=== PATIENT | female | born 1955 | race Caucasian/White ===

== ENCOUNTER → 2019-12-15 10:03 | Outpatient (BNVA) | payer BC, SELFPAY | PROVIDERS: Family Provider Nurse Practitioner; PCP Nurse Practitioner; Visit Provider Nurse Practitioner | DX: I10 Essential (primary) hypertension (principal); R73.9 Hyperglycemia, unspecified | CPT/HCPCS: 80053; 80061; 81000; 84443 ==

== ENCOUNTER → 2020-06-25 16:19 | Outpatient (BNVA) | payer BC, SELFPAY | PROVIDERS: Family Provider Nurse Practitioner; PCP Nurse Practitioner; Visit Provider Nurse Practitioner Family | DX: I10 Essential (primary) hypertension (principal); R07.9 Chest pain, unspecified; M79.10 Myalgia, unspecified site; J30.89 Other allergic rhinitis; E78.2 Mixed hyperlipidemia; J45.990 Exercise induced bronchospasm; M17.10 Unilateral primary osteoarthritis, unspecified knee; K21.00 Gastro-esophageal reflux disease with esophagitis, without bleeding; E66.9 Obesity, unspecified | CPT/HCPCS: 80053; 80061; 84443; 84484; 85025 ==

== ENCOUNTER 2020-10-25 20:56 | Emergency (ER) | payer BC, SELFPAY ==
[2020-10-25 21:10] VITALS: BP 152/89; PULSE 78; RESP 16; TEMP 36.2; O2SAT 100; BMI 34.7
--- NOTE | 2020-10-25 21:12 | XRR_ITS ---
PROCEDURE INFORMATION: Exam: XR Right Wrist Exam date and time: 10/25/2020 9:12 PM Age: 65 years old Clinical indication: Right; Patient HX: PT. Fell RT. Wrist pain; Additional info: Pain/injury TECHNIQUE: Imaging protocol: XR Right wrist. Views: 1 or 2 views. COMPARISON: No relevant prior studies available. FINDINGS: Bones/joints: No acute fracture or dislocation. Soft tissues: Normal. XR/XR wrist RT 2V [id number] IMPRESSION: No acute fracture or dislocation.
--- NOTE | 2020-10-25 21:21 | XRR_ITS ---
PROCEDURE INFORMATION: Exam: XR Right Knee Exam date and time: 10/25/2020 9:21 PM Age: 65 years old Clinical indication: Right; Patient HX: PT. Fell RT. Knee pain TECHNIQUE: Imaging protocol: XR Right knee. Views: 3 views. COMPARISON: No relevant prior studies available. FINDINGS: Bones/joints: No acute fracture or dislocation. Soft tissues: Normal. XR/XR knee RT 3V* [id number] IMPRESSION: No acute fracture or dislocation.
[2020-10-25 21:54] VITALS: BP 124/71; PULSE 79; RESP 17; O2SAT 99
[2020-10-25] MEDS: tetanus-dipt-pertussis 0.5 mL SDV IM (21:59)
--- NOTE | 2020-10-25 22:53 | ED_ITS ---
HPI - Extremity Problem General: Chief complaint: Extremity Injury, Upper Stated complaint: fall/r wrist injury Time Seen by Provider: 10/25/20 21:12 History of Present Illness: HPI Narrative: The patient is a 65-year-old female who comes to the ER after a trip and fall. She complains of right wrist and right knee pain. She also has a small scrape to her left great toe. Tetanus greater than 5 years old. Neurovascularly intact distal to all injuries. Major ligaments also intact. MD Complaint: extremity pain and joint pain Pain Consistency: constant Location: left and right Associated symptoms: Deny chest pain or rash Review of Systems General: Reports: 10 or more systems reviewed and unremarkable except in HPI and below Const: Denies: fatigue Eyes: Denies: change in vision, blurry vision or eye redness ENMT: Denies: throat pain, swelling of lips/tongue, ear or mastoid pain or nasal congestion Card: Denies: chest pain, palpitations, irregular heart rhythm, edema, dyspnea on exertion or orthopnea Resp: Denies: dyspnea, productive cough or non-productive cough GI: Denies: abdominal pain, diarrhea or GI cramping : Denies: flank pain, difficulty voiding, urinary frequency or urinary urgency Musc: Reports: joint pain; Denies: neck pain, back pain, extremity pain, joint redness, limited range of motion or muscle weakness Skin/Breast: Denies: rash, pruritus, erythema, skin pain or skin tenderness Neuro: Denies: headache(s), numbness in extremities, weakness in extremities, sensory changes, difficulty walking, dizziness, confusion or Slurred speech present Psych: Denies: anxiety or depression Endo: Denies: polyuria All/Imm: Denies: urticaria, throat swelling or tongue swelling PFSH ED PFSH: Medical History Anxiety and depression Environmental and seasonal allergies GERD (gastroesophageal reflux disease) HTN, goal below 130/80 Hyperlipidemia, unspecified Knee arthropathy Migraine Myalgia Surgical History H/O reduction mammoplasty History of appendectomy History of hysterectomy Family History Other Asthma Diabetes Heart disease Denies family history of Bleeding disorder Social History Smoking and tobacco status: never smoked Second hand smoke exposure: No Smoking risk assessment/counseling performed?: No Alcohol intake: never Desire information about alcohol rehabilitation?: No Counseling given: No Desire information about substance/drug rehabilitation?: No Counseling given: No Household members: spouse History of recent travel: No Current gender identity: Female Physical Exam Const: COMMON NORMALS: no acute distress, average body habitus, patient oriented x3, no limitations, healthy appearing, alert and well nourished GENERAL APPEARANCE: cooperative, comfortable, well kempt and well developed ORIENTATION/CONSCIOUSNESS: Yes awake, Yes oriented to person, Yes oriented to place and Yes oriented to time HENMT: COMMON NORMALS: normocephalic, external ears normal and Normal external nose present HEAD & SCALP: normal to inspection and normocephalic NOSE: Normal external nose present EXTERNAL EAR: Yes external ears normal MOUTH: Normal oral and palatal mucosa present THROAT: posterior oropharynx normal Eye: COMMON NORMALS: Equal, round and reactive pupils present and EOMs intact bilaterally GENERAL EYE: appearance normal, both eyes and all related structures PUPIL: Yes Equal, round and reactive pupils present Neck/C-Spine: COMMON NORMALS: full ROM, no lymphadenopathy, no meningeal signs and no JVD GENERAL: Yes normal visual inspection Lymph: LYMPHATIC: no lymphadenopathy noted Chest: COMMONS NORMALS: normal inspection of the chest and normal palpation of entire chest wall Resp: COMMON NORMALS: normal respiratory effort, No retractions, No use of accessory muscles, clear to auscultation bilaterally and percussion normal EFFORT & INSPECTION: Yes able to speak in complete sentences AUSCULTATION: clear to auscultation bilaterally PERCUSSION: percussion normal Cardio: COMMON NORMALS: no JVD, regular rate, regular rhythm, S1 normal heart sound present, S2 normal heart sound present and Peripheral pulses 2+ throughout RATE: regular rate RHYTHM: regular rhythm HEART SOUNDS: S1 normal heart sound present and S2 normal heart sound present PERIPHERAL PULSES: Peripheral pulses 2+ throughout GI: COMMON NORMALS: Normal to inspection, nondistended, normoactive bowel sounds present, Soft to palpation, non-tender and no masses INSPECTION: Yes normal to inspection PALPATION: Yes Soft to palpation : COMMON NORMALS: Yes no CVA tenderness BLADDER/KIDNEY EXAM: Yes no CVA tenderness Back/Pelvis: COMMON NORMALS: no CVA tenderness, thoracic and lumbar spine normal to inspection, no thoracic nor lumbar tenderness and thoraco-lumbar ROM normal Extremity: COMMON NORMALS: normal to inspection, full ROM, capillary refill normal, no joint enlargement and no pedal edema NARRATIVE EXTREMITY EXAM: Right wrist with some pain and tenderness to the bony areas. Will get x-ray. Likely sprain but will get x-ray. Neurovascularly intact distal to injury. Right knee major ligaments intact. Appears mildly swollen compared to the left knee. No bruising. Neurovascularly intact distal to injury. Left great toe has a abrasion to it with a small amount of crusted blood. GENE RAL: Yes normal exam except as noted Neuro: COMMON NORMALS: patient oriented x3, CN's II-XII intact bilaterally, moves all extremities, no focal motor deficits, no sensory deficits noted and gait normal SENSORIUM/ORIENTATION: Yes alert, Yes oriented to person, Yes oriented to place and Yes oriented to time MENINGEAL SIGNS: Yes no meningeal signs Psych: COMMON NORMALS: mental status grossly normal, Normal thought process present, cooperative, normal affect and speech normal APPEARANCE: Yes well kempt ATTITUDE: Yes calm SPEECH: Yes normal speech THOUGHT PROCESS: Normal thought process present Skin: COMMON NORMALS: no rashes or lesions noted GENERAL SKIN EXAM: no rashes or lesions noted Course Vital Signs: Vital signs: Vital Signs Temperature 97.2 F L 10/25/20 21:10 Pulse Rate 79 10/25/20 21:54 Respiratory Rate 17 10/25/20 21:54 Blood Pressure 124/71 10/25/20 21:54 Pulse Oximetry 99 10/25/20 21:54 MDM - Extremity (Nontraumatic) MDM Narrative: Medical decision making narrative: X-rays of right wrist and knee negative. Left toe scrape was cleaned with peroxide and given tetanus update. Tylenol for pain and primary doctor in a few days. MRI if still in pain. ER with worsening symptoms at any time Discharge Plan Discharge Patient Disposition: Home Clinical Impression: Sprain and strain of wrist, Contusion of knee Condition: Stable Prescriptions: No Action albuterol sulfate [ProAir HFA] 90 mcg/actuation HFA aerosol inhaler 2 puff INHALATION Q6H PRN (Reason: shortness of breath or wheezing) Qty: 8.5 RF: 5 cyclobenzaprine 10 mg tablet 10 mg PO TID PRN (Reason: muscle spasm) Qty: 90 RF: 5 diclofenac sodium [Voltaren] 1 % gel 2 g TOPICAL .at bedtime 30 Days Qty: 100 RF: 5 fenofibrate nanocrystallized [Tricor] 145 mg tablet 145 mg PO DAILY Qty: 30 RF: 5 furosemide [Lasix] 20 mg tablet 20 mg PO DAILY Qty: 30 RF: 5 loratadine 10 mg tablet 10 mg PO DAILY Qty: 30 RF: 5 meloxicam 15 mg tablet 15 mg PO DAILY Qty: 30 RF: 5 metoprolol tartrate 25 mg tablet 25 mg PO BID Qty: 60 RF: 5 montelukast 10 mg tablet 10 mg PO DAILY Qty: 30 RF: 5 lisinopril 20 mg tablet 20 mg PO DAILY 30 Days Qty: 30 RF: 5 nitroglycerin 0.4 mg tablet, sublingual 0.4 mg sublingual Q5M PRN (Reason: chest pain) 30 Days Qty: 30 RF: 2 omeprazole 40 mg capsule,delayed release(DR/EC) 40 mg PO DAILY 30 Days Qty: 30 RF: 2 fluticasone propionate 50 mcg/actuation spray,suspension 2 spray INTRANASAL DAILY RF: 0 meclizine 12.5 mg tablet 12.5 mg PO DAILY RF: 0 Contrave 8-90 mg tablet extended release 2 tab PO Q12H Qty: 120 RF: 0 aspirin [Adult Aspirin Regimen] 81 mg tablet,delayed release (DR/EC) 81 mg PO DAILY Qty: 30 RF: 6 Discharge Orders: Discharge ED (Routine); Ordered 10/25/20 Ordered By: Brandon Ibrahim Referrals: Cinda Gonzalez, BAUTISTAC [Primary Care Provider] - Discharge Diet: Advance as tolerated Discharge Activity: Resume usual activity Patient Instructions: Opioid Safety Activity Restrictions/Additional Instructions: We have taken x-rays of your knee and wrist and there are no fractures. You have likely sprained and bruised your wrist and knee. Please take Tylenol for your pain and give it a few days. Follow-up with your primary care physician around that and get an MRI if you are still having significant pain. Return to the ER at anytime with worsening symptoms Coding Level of Care Code ED Hand Pattern Marker for Lindsay Carroll
[2020-10-25 23:27] VITALS: BP 109/71; PULSE 83; RESP 16; TEMP 36.4; O2SAT 99
== END 2020-10-25 23:28 | disposition home or self-care (01) ==
PROVIDERS: Emergency Provider Family Medicine; PCP Nurse Practitioner
DX: S63.501A Unspecified sprain of right wrist, initial encounter (principal); S66.911A Strain of unspecified muscle, fascia and tendon at wrist and hand level, right hand, initial encounter; S80.01XA Contusion of right knee, initial encounter; Z79.82 Long term (current) use of aspirin; I10 Essential (primary) hypertension; E78.5 Hyperlipidemia, unspecified; W01.0XXA Fall on same level from slipping, tripping and stumbling without subsequent striking against object, initial encounter; Z23 Encounter for immunization
CPT/HCPCS: 73100; 73562; 90471; 90715; 99283

== ENCOUNTER 2020-12-05 09:15 | Outpatient (CLI) | payer BC, SELFPAY ==
[2020-12-05 09:30] VITALS: BP 132/80; PULSE 80; RESP 17; TEMP 36.7; O2SAT 98; BMI 33.8
[2020-12-05 09:36] VITALS: BP 115/25; PULSE 75; RESP 19; TEMP 35.5; O2SAT 96
[2020-12-05 10:01] VITALS: BP 130/78; PULSE 75; RESP 17; TEMP 36.9; O2SAT 96
== END 2020-12-05 09:16 | disposition home or self-care (01) ==
PROVIDERS: PCP Nurse Practitioner; Visit Provider Nurse Practitioner
DX: U07.1 COVID-19 (principal)
CPT/HCPCS: 96365

== ENCOUNTER → 2021-01-06 09:44 | Outpatient (BNVA) | payer BC, SELFPAY | PROVIDERS: PCP Nurse Practitioner; Visit Provider Nurse Practitioner | DX: I10 Essential (primary) hypertension (principal); E78.2 Mixed hyperlipidemia; J30.89 Other allergic rhinitis; M17.10 Unilateral primary osteoarthritis, unspecified knee; E66.9 Obesity, unspecified; J45.990 Exercise induced bronchospasm; M79.10 Myalgia, unspecified site | CPT/HCPCS: 71046; 80053; 80061 ==

== ENCOUNTER 2021-01-24 13:51 | Outpatient (CLI) | payer BC, SELFPAY ==
--- NOTE | 2021-01-24 15:00 | MM_ITS ---
WS: [id number] BILATERAL SCREENING DIGITAL MAMMOGRAM WITH CAD HISTORY: Z12.39 - Encounter for other screening for malignant neoplasm. COMPARISON: 01/21/2018 Bilateral CC and MLO views submitted. Computer aided detection analyzed. Breast composition: The breasts are almost entirely fatty. No suspicious masses, microcalcifications or architectural distortion. MM/[place] [id number] IMPRESSION: BI-RADS: 1-Negative FOLLOW UP: 1 Year Follow-up
== END 2021-01-24 13:52 | disposition home or self-care (01) ==
LOC: RADSHAW 13:53
PROVIDERS: PCP Nurse Practitioner; Visit Provider Nurse Practitioner
DX: Z12.31 Encounter for screening mammogram for malignant neoplasm of breast (principal)
CPT/HCPCS: 77067

== ENCOUNTER 2021-02-14 07:41 | Outpatient (CLI) | payer BC, SELFPAY ==
--- NOTE | 2021-02-14 07:46 | USCV_ITS ---
Do Rosario Age: 65 Gender: F : 1955 Exam Date: 02/14/2021 07:52 Ordering Phys: Cinda Gonzalez Technologist: CARLOS MANUEL [place]am Location[place] [facility] [place] Indication: KNOWN THORACIC A HISTORY: Diameter (cm) AP x Transverse x Length Velocity (cm/s) Waveform Prox Aorta: 1.74 x 2.10 x 77.60 Mid Aorta: 1.78 x 1.39 x 83.20 Distal Aorta: 1.55 x 1.65 x 47.90 Right Iliac Prox: 0.90 x 0.97 x 63.60 Left Iliac Prox: 0.76 x 0.94 x 99.20 Stent Prox Landing x x Aneurysmal Sac Max x x Lt Lat Sac Dim Rt Lat Sac Dim Stent Dist Landing x x Right Iliac Stent x x Left Iliac Stent x x Right Renal Art Left Renal Art FINDINGS: CONCLUSIONS No evidence of abdominal aortic or bilateral iliac aneurysm. Vle Vidales MD (Electronically Signed) Final Date: 14 February 2021 14:47 S
== END 2021-02-14 07:42 | disposition home or self-care (01) ==
LOC: RAD 07:43
PROVIDERS: PCP Nurse Practitioner; Visit Provider Nurse Practitioner
DX: Z13.6 Encounter for screening for cardiovascular disorders (principal)
CPT/HCPCS: 76706

== ENCOUNTER → 2021-03-18 13:24 | Outpatient (BNVA) | payer BC, SELFPAY | PROVIDERS: PCP Nurse Practitioner; Visit Provider Nurse Practitioner Family | DX: J02.9 Acute pharyngitis, unspecified (principal) | CPT/HCPCS: 87071; 87880 ==

== ENCOUNTER 2021-05-05 12:39 | Outpatient (CLI) | payer BC, SELFPAY ==
[2021-05-05 12:49] VITALS: BP 121/80; PULSE 64; RESP 19; TEMP 36.4; O2SAT 96; BMI 34.7
[2021-05-05 14:51] VITALS: BP 120/79; PULSE 67; RESP 20; TEMP 36.5; O2SAT 98
== END 2021-05-05 12:40 | disposition home or self-care (01) ==
LOC: OPS 12:45
PROVIDERS: PCP Nurse Practitioner; Visit Provider Nurse Practitioner Family
DX: U07.1 COVID-19 (principal)
CPT/HCPCS: 96365

== ENCOUNTER → 2021-07-15 09:10 | Outpatient (BNVA) | payer BC, SELFPAY | PROVIDERS: PCP Nurse Practitioner; Visit Provider Nurse Practitioner | DX: E78.2 Mixed hyperlipidemia (principal); E66.9 Obesity, unspecified; I10 Essential (primary) hypertension; J30.89 Other allergic rhinitis; M17.10 Unilateral primary osteoarthritis, unspecified knee; M79.10 Myalgia, unspecified site | CPT/HCPCS: 80053; 80061; 84443 ==

== ENCOUNTER 2021-12-10 12:31 | Observation (INO) | payer BC, SELFPAY ==
--- NOTE | 2021-12-10 12:38 | ECG_ITS ---
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 Measurements Intervals [place] Rate: 65 P: 68 IN: 142 QRS: 23 QRSD: 93 T: 57 QT: 411 QTc: 430 Interpretive Statements SINUS RHYTHM NONSPECIFIC T-WAVE ABNORMALITY No previous ECG available for comparison Electronically Signed On 12-10-2021 17:17:04 CDT by Robert Pike M.D. [id number]
[2021-12-10 12:39] VITALS: BP 128/80; PULSE 67; RESP 18; TEMP 36.4; O2SAT 100; BMI 29.4
--- NOTE | 2021-12-10 12:47 | XR_ITS ---
WS: [id number] Portable AP upright chest, 12/10/2021 Clinical Data: chest pain Comparison: PA and lateral chest, 01/06/2021. Findings: No nodules, masses or effusions are seen. The heart is normal. The pulmonary vascularity is not increased. No pneumonia or pneumothorax is seen. The descending thoracic aorta shows mild tortuo sity. Monitor leads are on the chest wall. XR/XR chest 1V portable [id number] Impression: Atherosclerosis.
--- NOTE | 2021-12-10 12:48 | ED_ITS ---
HPI - General Adult General: Chief complaint: Chest Pain Stated complaint: Chest pains and tingling arms, SOB Time Seen by Provider: 12/10/21 12:47 History of Present Illness: CC: Chest Pain HPI: This is a 66 yo patient hx of HTN, HLD presenting to the ED complaining of acute sudden onset intermittent chest pressure since 11 AM. Patient was at home sitting down when she suddenly experienced pressure-like chest pain with radiation between his shoulder blades. Patient denies any sharp knife stab chest pain. Patient reports some shortness of breath with the chest pain. Patient took 2 doses of nitro with relief of chest pain. Patient has no prior history of ACS or cardiac diseases. No associated with shortness of breath, chest pain or dyspnea on exertion. Pain is not tearing in nature and does not radiate to the back. Pain not associated with vomiting or PO intake. Denies any recent sympathomimetic drug use. Patient denies any cough. Denies palpitations, dysphagia, diaphoresis, radiation of pain to bilateral arms, jaw. Denies F/N/V/D. Patient denies any recent immobility, surgery, unilateral leg swelling, or prior PE. Patient denies any orthopnea. Onset: 11am Duration: ongoing intermittent lasting for 10-20 minutes at a time Location: home Severity: mild/moderate Associated symptoms: Reports chest pain and dyspnea; Deny nausea, rash, palpitations or vomiting Review of Systems Const: Denies: fever(s) or chills Eyes: Denies: change in vision ENMT: Denies: mouth pain Card: Reports: chest pain; Denies: palpitations Resp: Reports: dyspnea; Denies: non-productive cough GI: Denies: abdominal pain, nausea, vomiting or diarrhea : Denies: dysuria Musc: Denies: extremity pain Skin/Breast: Denies: rash or new lesions Neuro: Denies: weakness in extremities Psych: Reports: other (Normal mood) Jhon/Lymph: Denies: easy bruising PFSH ED PFSH: Medical History Anxiety and depression Asthma, exercise induced Environmental and seasonal allergies GERD (gastroesophageal reflux disease) HTN, goal below 130/80 Hyperlipidemia, unspecified Knee arthropathy Migraine Myalgia Tortuosity of artery Thoracic aorta Surgical History H/O reduction mammoplasty History of appendectomy History of hysterectomy Family History Other Asthma Diabetes Heart disease Denies family history of Bleeding disorder Social History Smoking and tobacco status: never smoked Second hand smoke exposure: No Smoking risk assessment/counseling performed?: No Alcohol intake: never Desire information about alcohol rehabilitation?: No Counseling given: No Desire information about substance/drug rehabilitation?: No Counseling given: No Adopted: No Caregiver/support person: No Lives independently: Yes Household members: spouse Housing: House Marital status: service: No History of recent travel: No Current gender identity: Female Physical Exam Const: COMMON NORMALS: alert HENMT: COMMON NORMALS: atraumatic HEAD & SCALP: atraumatic MOUTH: moist mucous membranes not abnormal Eye: COMMON NORMALS: EOMs intact bilaterally and conjunctivae normal CONJUNCTIVA: Yes conjunctivae normal Neck/C-Spine: COMMON NORMALS: full ROM and supple Resp: COMMON NORMALS: normal respiratory effort and clear to auscultation bilaterally AUSCULTATION: clear to auscultation bilaterally Cardio: COMMON NORMALS: regular rate RATE: regular rate OTHER: 2+ radial pulses b/l GI: COMMON NORMALS: Soft to palpation and non-tender PALPATION: Yes Soft to palpation OTHER: No focal TTP. NO guarding rebound, guarding, rigidity. No CVA tenderness to percussion. Neg Patel/Neg McBurney's point tenderness, no suprabupic tenderness to palpation. Extremity: COMMON NORMALS: full ROM Neuro: SENSORIUM/ORIENTATION: Yes alert MOTOR EXAM: No Abnormal motor strength present and Other motor observations present (no focal motor deficits) Psych: COMMON NORMALS: speech normal SPEECH: Yes normal speech MOOD & AFFECT: Yes euthymic mood Course Vital Signs: Vital signs: Vital Signs Temperature 98.3 F 12/11/21 12:00 Pulse Rate 82 12/11/21 12:00 Respiratory Rate 16 12/11/21 12:00 Blood Pressure 119/72 12/11/21 12:00 Pulse Oximetry 96 12/11/21 12:00 Oxygen Delivery Me thod 12/11/21 12:00 MDM - General Adult Medical Decision Making [66]yo patient w/ hx of HTL, HTN, tortuous aorta presenting to the ED with evaluation of new onset chest pressure with radiation towards the back and shortness of breath. HDS, pulse 2+ radially bilaterally, no signs of fluid overload, AAOx3, neuro exam intact. Workup: ECG x 2, CXR, CBC, BMP, Troponin x 2 Interventions: ASA Findings: ECG: No overt evidence of STEMI, hyperacute T waves, localizable STD or T wave inversions. No evidence of Brugada?s sign, delta wave, epsilon wave, significantly prolonged QTc, or malignant arrhythmia. No Q waves. Other Labs unremarkable for emergent problems. CXR: Without PTX, PNA, or widened mediastinum Last Stress Test: never Last Heart Catheterization: never Given heart score 4, patient admitted to hospital for further evaluation of chest pain. Disposition: admission Lab Data : 12/10/21 13:22 12/10/21 13:22 Radiology Impressions Chest X-Ray 12/10/21 12:47 Impression: Atherosclerosis. Chest CTA 12/10/21 13:10 IMPRESSION: No evidence of acute pathology in the chest. Laboratory Results WBC 10.6 10^3/uL (4.0-10.0) H 12/10/21 13:22 RBC 4.27 10^6/uL (4.1-5.3) 12/10/21 13:22 Hgb 12.8 g/dL (11.5-15.3) 12/10/21 13:22 Hct 39.5 % (37.0-47.0) 12/10/21 13:22 MCV 92.5 fl (81-99) 12/10/21 13:22 MCH 30.0 pg (28.0-34.0) 12/10/21 13:22 MCHC 32.4 g/dL (30.0-36.0) 12/10/21 13:22 RDW 13.1 % (12.1-15.1) 12/10/21 13:22 Plt Count 288 10^3/cmm (130-400) 12/10/21 13:22 MPV 10.6 fL (7.4-10.4) H 12/10/21 13:22 Neut % (Auto) 79.3 % 12/10/21 13:22 Lymph % (Auto) 11.6 % 12/10/21 13:22 Larue % (Auto) 4.9 % 12/10/21 13:22 Eos % (Auto) 3.3 % 12/10/21 13:22 Baso % (Auto) 0.4 % 12/10/21 13:22 Neut # (Auto) 8.41 10^3/uL (1.8-7.7) H 12/10/21 13:22 Lymph # (Auto) 1.2 10^3/uL (0.8-4.8) 12/10/21 13:22 Larue # (Auto) 0.5 10^3/uL (0.2-0.9) 12/10/21 13:22 Eos # (Auto) 0.4 10^3/uL (0.0-0.8) 12/10/21 13:22 Baso # (Auto) 0.0 10^3/uL (0.0-0.1) 12/10/21 13:22 Nucleated RBC % (auto) 0 % 12/10/21 13:22 Nucleated RBCs # 0.0 /100WBC 12/10/21 13:22 D-Dimer <= 0.27 ug/mIFEU (0-0.59) 12/10/21 13:23 Sodium 135 mmol/L (136-145) L 12/10/21 13:22 Potassium 3.9 mmol/L (3.5-5.1) 12/10/21 13:22 Chloride 100 mmol/L (98-107) 12/10/21 13:22 Carbon Dioxide 22 mmol/L (22-29) 12/10/21 13:22 Anion Gap 16.9 (5-19) 12/10/21 13:22 BUN 22 mg/dL (8-23) 12/10/21 13:22 Creatinine 1.0 mg/dL (0.5-0.9) H 12/10/21 13:22 GFR Calculation 55.8 mL/min (90-130) L 12/10/21 13:22 Glucose 90 mg/dL (65-115) 12/10/21 13:22 Calculated Osmolality 283 mOsm/kg (285-295) L 12/10/21 13:22 Calcium 9.7 mg/dL (8.5-10.5) 12/10/21 13:22 Troponin T Baseline 6 ng/L (0-10) 12/10/21 13:22 Troponin T 120 Minute 6.00 ng/L (0-10) 12/10/21 15:11 Delta Troponin T 0 ABS# (0-10) 12/10/21 15:11 TSH 1.86 uIU/mL (0.27-4.20) 12/10/21 15:11 Discharge Plan Discharge Patient Disposition: Admitted As Inpatient Admit Provider: Elida Gilbert Clinical Impression: Chest pain, Dyspnea Condition: Stable Discharge Orders: Discharge Order (Routine); Ordered 12/11/21 Ordered By: Elida Gilbert Discharge Diet: Advance as tolerated Discharge Activity: Increase activity as tolerated Coding Level of Care Code ED Event Marketing Specialist for Chg Fwd Exam Comprehensive
--- NOTE | 2021-12-10 13:10 | CTR_ITS ---
PROCEDURE INFORMATION: Exam: CTA Chest Without And With Contrast Exam date and time: 12/10/2021 2:37 PM Age: 66 years old Clinical indication: Pain; Chest pressure; Additional info: Tortuous aorta, back pain TECHNIQUE: Imaging protocol: Computed tomographic angiography of the chest without and with contrast. 3D rendering (Not supervised by radiologist): MIP and/or 3D reconstructed images were created by the technologist. Radiation optimization: All CT scans at this facility use at least one of these dose optimization techniques: automated exposure control; mA and/or kV adjustment per patient size (includes targeted exams where dose is matched to clinical indication); or iterative reconstruction. Contrast material: OMNI 350; Contrast volume: 95 ml; Contrast route: INTRAVENOUS (IV); COMPARISON: CR XR chest 1V portable [id number] 12/10/2021 12:57 PM RADIATION DOSE METRICS: Total DLP (mGy-cm): 671.83 FINDINGS: Pulmonary arteries: Normal. No pulmonary emboli. Aorta: Slightly tortuous aorta without evidence of aneurysm. No aortic dissection. Lungs: Tiny calcified granuloma noted in the right middle lobe. Pleural spaces: Unremarkable. No pneumothorax. No pleural effusion. Heart: Unremarkable. No cardiomegaly. No pericardial effusion. Lymph nodes: Small calcified mediastinal lymph nodes noted, likely sequela of previous granulomatous disease. Spleen: There is tiny calcific densities scattered throughout the spleen, likely sequela of previous granulomatous disease. The spleen is otherwise unremarkable. Accessory splenule noted in the left upper quadrant. Bones/joints: Mild degenerative changes of the spine seen. Soft tissues: Unremarkable. CT/CT angio chest [id number] IMPRESSION: No evidence of acute pathology in the chest.
--- NOTE | 2021-12-10 13:39 | PC.NURSE ---
pt reports chest pain that began this morning around 1100 at rest. Reports total she took 2 nitros with temporary improvement after each. Pt reports dizziness and nausea, with pain radiating to her back. Reports hx of HTN and a twisted and bulging upper aorta. Pt resting in bed, speech clear, speaking in complete sentences without difficulty. Skin pink/warm/dry. Lung sounds clear.
[2021-12-10] MEDS: aspirin 325 mg Tablet PO (13:49)
[2021-12-10 13:54] LABS: Troponin(5th) Baseline 6 ng/L (0-10)
[2021-12-10 14:07] LABS: Basophils % 0.4 %; Eosinophils # 0.4 10^3/uL (0.0-0.8); Eosinophils % 3.3 %; Hematocrit 39.5 % (37.0-47.0); Hemoglobin 12.8 g/dL (11.5-15.3); Lymphocytes # 1.2 10^3/uL (0.8-4.8); Lymphocytes % 11.6 %; Mean Corpuscular HGB Conc 32.4 g/dL (30.0-36.0); Mean Corpuscular Volume 92.5 fl (81-99); Mean Platelet Volume 10.6 fL (7.4-10.4); Monocytes # 0.5 10^3/uL (0.2-0.9); Monocytes % 4.9 %; Neutrophils # 8.41 10^3/uL (1.8-7.7); Neutrophils % 79.3 %; Nucleated Red Blood Cells % 0 %; Platelet Count 288 10^3/cmm (130-400); Red Blood Count 4.27 10^6/uL (4.1-5.3); Red Cell Distribution Width 13.1 % (12.1-15.1); White Blood Count 10.6 10^3/uL (4.0-10.0)
[2021-12-10 14:20] LABS: Anion Gap 16.9 (5-19); Blood Urea Nitrogen 22 mg/dL (8-23); Calcium 9.7 mg/dL (8.5-10.5); Carbon Dioxide 22 mmol/L (22-29); Chloride 100 mmol/L (98-107); Glomerular Filtration Rate 55.8 mL/min (90-130); Glucose 90 mg/dL (65-115); Osmolality Calculated 283 mOsm/kg (285-295); Potassium 3.9 mmol/L (3.5-5.1); Sodium 135 mmol/L (136-145)
[2021-12-10 14:26] LABS: Creatinine Clr Calc Pharmacy 53.1794
--- NOTE | 2021-12-10 14:43 | ECG_ITS ---
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 Measurements Intervals [place] Rate: 70 P: 62 TN: 160 QRS: -7 QRSD: 93 T: 59 QT: 415 QTc: 451 Interpretive Statements SINUS RHYTHM NONSPECIFIC T-WAVE ABNORMALITY Compared to ECG 12/10/2021 12:38:51 No significant changes Electronically Signed On 12-10-2021 17:20:01 CDT by Robert Pike M.D. [id number]
[2021-12-10] MEDS: iohexol 350 mg/mL 100 mL Btl IV (14:50)
[2021-12-10 16:10] LABS: Troponin 5 2HR Delta 0 ABS# (0-10)
--- NOTE | 2021-12-10 16:12 | PM.HP ---
Providers/Chief Complaint Primary Care Provider: Cinda Gonzalez, NAI-C Chief Complaint: Chest pains and tingling arms, SOB History of Present Illness Do Rosario is a 66 year old female who presented to the hospital for 2 episode of chest pain. Patient works graveyard shifts at a intermediate. This morning she was visiting with her friend when she started spearing seeing chest pain at rest. It last for about 20 minutes, she took 1 dose of nitroglycerin, it reoccurred and then she took a second dose and then her took her to the ER. She describes her pain as tightness radiating towards her left shoulder she did not notice any nausea, vomiting or shortness of breath with it. Does not have history of coronary disease, CA or CHF have family history her mother had CA in her 40s. Her chest pain would last for about 20 minutes, it is spontaneous in nature and nitroglycerin makes it better, she consider herself fairly active. Does not smoke or drink alcohol. In the ER her D-dimer is unremarkable, troponin not scantly high considering her moderate risk factors she has been admitted to the hospital for stress test in the morning TSH is normal, CTA chest rule out PE Review of Systems Const: Denies: fever(s) Eyes: Denies: change in vision ENMT: Denies: throat pain Card: Reports: chest pain Resp: Denies: dyspnea GI: Denies: abdominal pain : Denies: flank pain Musc: Denies: neck pain Skin/Breast: Denies: rash Neuro: Denies: headache(s) Psych: Reports: anxiety Endo: Denies: polyuria Jhon/Lymph: Denies: easy bruising All/Imm: Denies: urticaria Medications/Allergies Home Medications Medication Instructions Recorded Confirmed Last Taken Type nitroglycerin 0.4 mg sublingual 0.4 mg sublingual Q5M PRN chest 06/25/20 12/10/21 12/10/21 Rx tablet pain 30 days #30 tabs aspirin 81 mg tablet,delayed 81 mg PO DAILY #30 tabs 07/11/20 12/10/21 Unknown Rx release (Adult Aspirin Regimen) albuterol sulfate 90 mcg/actuation 2 puff inhalation Q6H PRN 01/06/21 12/10/21 Unknown Rx aerosol inhaler (ProAir HFA) shortness of breath or wheezing #8.5 grams cyclobenzaprine 10 mg tablet 10 mg PO TID PRN muscle spasm #180 07/15/21 12/10/21 12/10/21 Rx tabs fenofibrate nanocrystallized 145 145 mg PO DAILY #90 tabs 07/15/21 12/10/21 12/09/21 Rx mg tablet (Tricor) furosemide 20 mg tablet (Lasix) 20 mg PO DAILY #90 tabs 07/15/21 12/10/21 12/10/21 Rx loratadine 10 mg tablet 10 mg PO DAILY #90 tabs 07/15/21 12/10/21 12/10/21 Rx meloxicam 15 mg tablet 15 mg PO DAILY #90 tabs 07/15/21 12/10/21 12/10/21 Rx metoprolol tartrate 25 mg tablet 25 mg PO BID #180 tabs 07/15/21 12/10/21 12/10/21 Rx montelukast 10 mg tablet 10 mg PO DAILY #90 tabs 07/15/21 12/10/21 12/10/21 Rx potassium chloride 8 mEq 8 meq PO DAILY #90 tabs 07/15/21 12/10/21 12/10/21 Rx tablet,extended release valsartan 40 mg tablet (Diovan) 40 mg PO DAILY #90 tabs 11/12/21 12/10/21 12/10/21 Rx naltrexone 8 mg-bupropion 90 mg 2 tab PO Q12H #120 tabs 11/15/21 12/10/21 12/09/21 Rx tablet,extended release (Contrave) semaglutide (Ozempic) 0.5 mg (0.4 mL) SUBCUT .weekly 11/15/21 12/10/21 12/04/21 Rx #1.5 mL cholecalciferol (vitamin D3) 50 50 mcg PO DAILY 12/10/21 12/10/21 12/10/21 History mcg (2,000 unit) capsule (Vitamin D3) magnesium 200 mg tablet 200 mg PO DAILY 12/10/21 12/10/21 12/10/21 History omega-3 fatty acids-fish oil 684 1 cap PO DAILY 12/10/21 12/10/21 12/10/21 History mg-1,200 mg capsule,delayed release zinc 50 mg tablet 50 mg PO DAILY 08/12/10/21 12/10/21 History Allergies Allergy/AdvReac Type Severity Reaction Status Date / Time methocarbamol [From Robaxin] Allergy Unknown Unknown Verified 12/10/21 13:28 codeine Allergy Itching Verified 12/10/21 13:28 sulfa Drugs Allergy Unknown Rash Uncoded 10/16/21 09:34 PFSH Acute PFSH: Medical History Anxiety and depression Asthma, exercise induced Environmental and seasonal allergies GERD (gastroesophageal reflux disease) HTN, goal below 130/80 Hyperlipidemia, unspecified Knee arthropathy Migraine Myalgia Tortuosity of artery Thoracic aorta Surgical History H/O reduction mammoplasty History of appendectomy History of hysterectomy Family History Other Asthma Diabetes Heart disease Denies family history of Bleeding disorder Social History Smoking and tobacco status: never smoked Second hand smoke exposure: No Smoking risk assessment/counseling performed?: No Alcohol intake: never Desire information about alcohol rehabilitation?: No Counseling given: No Desire information about substance/drug rehabilitation?: No Counseling given: No Adopted: No Caregiver/support person: No Lives independently: Yes Household members: spouse Housing: House Marital status: service: No History of recent travel: No Current gender identity: Female Vitals/I&O/Wt Last Vital Signs Temp 97.6 F 12/10/21 12:39 Pulse 67 12/10/21 12:39 Resp 18 12/10/21 12:39 BP 128/80 12/10/21 12:39 Pulse Ox 100 12/10/21 12:39 O2 Del Method 12/10/21 12:39 Weight last 48 hrs Weight 73.028 kg Physical Exam Narrative: Pleasant female No active chest pain or shortness of breath Hemodynamically stable No active chest pain No signs of reproducible chest discomfort Awake and alert Nonfocal neuro exam Satting well on room air at the bedside No sign of cellulitis Appropriate mood and affect Abdomen soft Data : 12/10/21 13:22 12/10/21 13:22 A&P Assessment and plan (1) Unstable angina: Status: Acute Plan We will do Lexiscan stress test tomorrow morning Echo EKG unremarkable Troponin not significantly high D-dimer unremarkable No signs of PE TSH normal She can eat before midnight Full code N.p.o. after midnight DVT prophylaxis Lovenox Gastroenteritis symptoms on Wednesday which has resolved no active nausea, vomiting or diarrhea, she experiencing vomiting and diarrhea only on Wednesday and Wednesday Attestations Medical Necessity Statement*: She will be discharged within 48 hours will need cardiac stress test because of her moderate risk factors for coronary disease and for positive family history Time Spent in Patient Care: 40 Coding Level of Care Code Acute Manager Access for Lindsay Carroll Diagnoses Unstable angina I20.0
[2021-12-10 16:43] LABS: D Dimer <= 0.27 ug/mIFEU (0-0.59)
[2021-12-10 16:49] LABS: Thyroid Stimulating Hormone 1.86 uIU/mL (0.27-4.20)
[2021-12-10 17:59] VITALS: PULSE 82; O2SAT 96
--- NOTE | 2021-12-10 18:17 | ECG_ITS ---
[facility] Test Date: 2021-12-10 Pat Name: Do Rosario Department: Room: 253 Gender: Female Medicaid Plan Compliance Director: : 1955 Requested By: Herber Gotti Order Number: [id number] Amita MD: Robert Pike M.D. Measurements Intervals [place] Rate: 71 P: 62 HI: 156 QRS: 15 QRSD: 91 T: 59 QT: 403 QTc: 438 Interpretive Statements SINUS RHYTHM NONSPECIFIC T-WAVE ABNORMALITY Compared to ECG 12/10/2021 15:32:36 No significant changes Electronically Signed On 12-10-2021 22:43:17 CDT by Robert Pike M.D. [id number]
[2021-12-10 18:30] VITALS: BP 102/56; PULSE 78; RESP 19; O2SAT 94
--- NOTE | 2021-12-10 18:47 | PC.NURSE ---
Report given to VALERIANO Garcia on Med Surg
[2021-12-10 18:54] VITALS: BP 102/56
--- NOTE | 2021-12-10 20:02 | USCV_ITS ---
Do Rosario Age: 66 Gender: F : 1955 Exam Date: 12/10/2021 20:46 Ordering Phys: Elida Gilbert MD Technologist: LIA Exam Location: [facility] [place], [place] Indication: UA. No history of cardiac intervention per patient. BP: 102 / 56 HR: 67 Rhythm: Sinus Technical Quality: Adequate MEASUREMENTS (Male / Female) Normal Values 2D ECHO LV Diastolic Diameter PLAX 4.6 cm 4.2 - 5.9 / 3.9 - 5.3 cm LV Systolic Diameter PLAX 2.9 cm IVS Diastolic Thickness 1.1 cm 0.6 - 1.0 / 0.6 - 0.9 cm IVS Systolic Thickness 1.4 cm LVPW Diastolic Thickness 1.5 cm 0.6 - 1.0 / 0.6 - 0.9 cm LVPW Systolic Thickness 1.4 cm LVOT Diameter 1.7 cm LV Ejection Fraction 2D Teich 67.0 % LV Ejection Fraction MOD 2C 62.6 % LV Ejection Fraction 2C AL 62.8 % LA Diameter 3.2 cm LA Width 3.0 cm LA Height 4.6 cm RA Width 3.0 cm RA Height 4.0 cm Aorta at Sinotubular Diameter 2.6 cm IVC Diameter 1.4 cm M-MODE Aortic Annulus Diameter 2.7 cm LA Ao Ratio MM 1.1 MV E Point Septal Separation 0.4 cm DOPPLER AV Peak Velocity 156.0 cm/s LVOT Peak Velocity 132.0 cm/s AV Area Cont Eq vti 1.9 cm squared AV Area Cont Eq pk 1.9 cm squared MV Peak Velocity 92.0 cm/s MV Area PHT 3.5 cm squared Mitral E to A Ratio 1.1 MV E' Velocity 48.5 cm/s Mitral E to MV E' Ratio 9.5 Mitral E to LV E' Lateral Ratio 9.8 Mitral E to LV E' Septal Ratio 9.3 TR Peak Velocity 251.8 cm/s TR Peak Gradient 25.4 mmHg TV Peak E Velocity 53.0 cm/s Right Atrial Pressure 5.0 mmHg Pulmonary Artery Systolic Pressu 30.4 mmHg PV Peak Velocity 101.0 cm/s RV Acceleration Time 0.1 s RV Ejection Time 0.3 s RV AcT/ET 0.4 FINDINGS Left Ventricle Normal left ventricular size and systolic function, EF 63 %. Mild left ventricular hypertrophy. No regional wall motion abnormalities. Right Ventricle The right ventricle is normal in size and function. Right Atrium The right atrium is normal in size. Left Atrium The left atrium is normal in size. Mitral Valve No gross abnormalities noted Aortic Valve Thickened aortic valve. Tricuspid Valve [id number] tricuspid valve regurgitation. Estimated pulmonary artery peak systolic pressure 30 mmHg Pulmonic Valve No gross abnormalities noted Pericardium Normal pericardium without effusion. Aorta Normal ascending aorta dimension. IVC Normal inferior vena cava. CONCLUSIONS Normal left ventricular size and systolic function, EF 63 %. Mild left ventricular hypertrophy. No regional wall motion abnormalities. Thickened aortic valve. [id number] tricuspid valve regurgitation. Estimated pulmonary artery peak systolic pressure 30 mmHg. There is no pericardial effusion. There are no intracardiac masses. No previous study is available for comparison. Dr Segundo Goff MD [facility] (Electronically Signed) Final Date: 11 December 2021 21:45 S
[2021-12-10 20:34] LABS: Glucose Point of Care 126 mg/dL (70-110)
[2021-12-10 21:32] VITALS: PULSE 84; RESP 16; O2SAT 96
[2021-12-10 21:33] VITALS: PULSE 84; O2SAT 96
[2021-12-10] MEDS: enoxaparin 40 mg/0.4 mL Syringe SUBCUT (21:48)
[2021-12-10 22:09] VITALS: BMI 29.4
--- NOTE | 2021-12-11 | ECG_ITS ---
[facility] Test Date: 2021-12-11 Pat Name: Do Rosario Department: Room: 253 Gender: Female Dot Net Architect: : 1955 Requested By: Elida Gilbert Order Number: [id number] Amita MD: Robert Pike M.D. Interpretive Statements NAME OF STUDY: EXERCISE SESTAMIBI STRESS TEST INDICATION: [Unstable Angina] EXERCISE DATA: The patient was exercised by Jorge protocol. Baseline heart rate was 87 beats per minute. Baseline blood pressure was 118/83 millimeters of mercury. Target heart rate was 132 beats per minute. Maximum heart rate achieved was 142, which was 107% of the target heart rate. Maximum blood pressure was 155/76 millimeters of mercury. Total exercise time was 6 minute 20 seconds. Maximum METs achieved was 10.2. The reason for ending the test was completion of the protocol. The patient complained of shortness of breath during the stress test, which then resolved at the end of the test. ELECTROCARDIOGRAM: BASELINE: Showed sinus rhythm, normal axis, no significant ST-T changes at the baseline noted. [] EXERCISE: At the peak exercise level, [] No significant ST-T changes suggestive of ischemia noted. [] RECOVERY: During the recovery period, heart rate dropped appropriately. No significant ST-T changes in the recovery suggestive of ischemia noted. [] CONCLUSION: 1. Exercise capacity is good. 2. Heart rate response was appropriate. 3. Blood pressure response was appropriate. 4. Symptoms not suggestive of ischemia. 5. Exercise stress test is negative for ischemia Electronically Signed On 12-15-2021 0:51:30 CDT by Robert Pike M.D. [id number]
[2021-12-11 00:04] VITALS: BP 108/64; PULSE 62; RESP 18; TEMP 36.9; O2SAT 92
[2021-12-11 04:04] VITALS: BP 104/66; PULSE 54; RESP 18; TEMP 36.7; O2SAT 98
[2021-12-11 04:20] LABS: Troponin 5 6HR Delta 0 ng/L (0-12)
[2021-12-11 06:25] LABS: Glucose Point of Care 88 mg/dL (70-110)
[2021-12-11 08:26] VITALS: BP 128/85; PULSE 92
--- NOTE | 2021-12-11 08:28 | PC.NURSE ---
PT OFF THE FLOOR FOR STRESS TEST
--- NOTE | 2021-12-11 09:42 | DCPLANNER ---
Addendum entered by Jacquie Gonzales 01/08/22 14:54: Patient had a follow up appointment scheduled with heart care - patient did attend appointment. Addendum entered by Jacquie Gonzales 12/12/21 13:40: Patient has a follow up appointment scheduled for Thursday, December 23, 2021 at 1:[address] Shanks at [facility]. Clinic will call patient with appointment information. Original Note: solution design and analysis manager had message to schedule a follow up appointment for patient with cardiology. solution design and analysis manager sent patients information to the front office staff at [facility]. Patients information will be printed and reviewed. Clinic will call patient with appointment information.
--- NOTE | 2021-12-11 10:07 | PC.CHAP ---
Pastoral Care Encounter/Spiritual Assessment Type of Contact [] Declined superintendent terminal visit [] Patient/Family/Request visit [] Outpatient visit [] Follow-up visit [] Physician referral [] Code/Alert [x] Routine visit [] Staff referral [] Actively dying [] Patient sleeping [] Family support [] [] Out of room [] Palliative care [] [x] Receiving care in room [] Pre-surgical visit [] Trauma [] Long length of stay [] ICU visit [] Other: Relational/Emotional Strength [x] Patient feels connected with others/family/visitors/staff [] Distress [] Loneliness/isolation [] Abandonment Spirituality of Patient [x] Person of Marta [] Attends Zoroastrian of their Marta [x] Believes in Prayer [] Reads Bible or Anglican materials [] There are Spiritual issues to be addressed Boat Builder Interventions [x] Prayer [x] Active listening [x] Non-anxious presence [x] Spiritual/emotional support [] Crisis/trauma care [x] Spiritual counseling [] Bereavement support [] Provided bereavement packet [] Provided Bible/devotional materials [] Provided toy/stuffed animal, coloring book to patient or family member [] Provided Communion [] Anointing/[place] [] Salvation [x] Completed spiritual assessment [] Other: Impact on Illness or Injury [] Angry [] Fearful [] Anxious [] Often cries [] Exhaustion [] Unable to work [] Unable to attend religious [] Unable to walk/stand [] Unable to read [] Unable to drive [] Unable to eat/drink [] Unable to sleep [] Unable to be with family [] Patient intubated [] Other: Summary feeling better waiting on doctors report then she will able to go home Time spent with patient 10 mins
[2021-12-11] MEDS: aspirin 81 mg EC Tablet PO (10:12)
--- NOTE | 2021-12-11 11:19 | PM.DCS ---
Discharge Providers Date of Admission: 12/10/21 15:55 Date of Discharge: December 11, 2021 Attending Provider at Admission: Elida Gilbert MD Attending Provider at Discharge: Elida Gilbert MD Primary Care Provider: ELVA Chua Diagnoses at Discharge Discharge Diagnosis (1) Unstable angina: Status: Acute Reason for Visit Reason for Visit: Chest pains and tingling arms, SOB Hospital Course Hospital Course 66-year female who presented to hospital with 3 episodes of chest discomfort which she described as tightness, radiating towards her left shoulder, cardiac stress test was requested which was unremarkable, CTA chest ruled out PE. Most likely her symptoms are related to GERD or gallbladder disease with concomitant use of Ozempic. She remained hemodynamically stable, EKG unremarkable troponin without significant delta. Physical Exam Narrative: Pleasant female No active chest pain or shortness of breath Hemodynamically stable No active chest pain No signs of reproducible chest discomfort Awake and alert Nonfocal neuro exam Satting well on room air at the bedside No sign of cellulitis Appropriate mood and affect Abdomen soft Discharge Data Studies Completed and Pending Completed Studies During Hospitalization Category Date Time Status CT angio chest [id number] Stat Cat Scan 12/10/21 13:10 Completed Sestamibi Stress Test Request Routine Exams 12/11/21 06:00 Draft XR chest 1V portable [id number] Stat Exams 12/10/21 12:47 Completed NM jay perf SPECT r/s* [id number] Routine Nuc Med 12/11/21 20:02 Completed Pending at discharge Category Date Time Status CV. echo complete* [id number] Routine Ultrasound 12/10/21 20:02 Taken Radiology Impressions Chest X-Ray 12/10/21 12:47 Impression: Atherosclerosis. Chest CTA 12/10/21 13:10 IMPRESSION: No evidence of acute pathology in the chest. Laboratory Results WBC 10.6 10^3/uL (4.0-10.0) H 12/10/21 13:22 RBC 4.27 10^6/uL (4.1-5.3) 12/10/21 13:22 Hgb 12.8 g/dL (11.5-15.3) 12/10/21 13:22 Hct 39.5 % (37.0-47.0) 12/10/21 13:22 MCV 92.5 fl (81-99) 12/10/21 13:22 MCH 30.0 pg (28.0-34.0) 12/10/21 13:22 MCHC 32.4 g/dL (30.0-36.0) 12/10/21 13:22 RDW 13.1 % (12.1-15.1) 12/10/21 13:22 Plt Count 288 10^3/cmm (130-400) 12/10/21 13:22 MPV 10.6 fL (7.4-10.4) H 12/10/21 13:22 Neut % (Auto) 79.3 % 12/10/21 13:22 Lymph % (Auto) 11.6 % 12/10/21 13:22 [place] % (Auto) 4.9 % 12/10/21 13:22 Eos % (Auto) 3.3 % 12/10/21 13:22 Baso % (Auto) 0.4 % 12/10/21 13:22 Neut # (Auto) 8.41 10^3/uL (1.8-7.7) H 12/10/21 13:22 Lymph # (Auto) 1.2 10^3/uL (0.8-4.8) 12/10/21 13:22 [place] # (Auto) 0.5 10^3/uL (0.2-0.9) 12/10/21 13:22 Eos # (Auto) 0.4 10^3/uL (0.0-0.8) 12/10/21 13:22 Baso # (Auto) 0.0 10^3/uL (0.0-0.1) 12/10/21 13:22 Nucleated RBC % (auto) 0 % 12/10/21 13:22 Nucleated RBCs # 0.0 /100WBC 12/10/21 13:22 D-Dimer <= 0.27 ug/mIFEU (0-0.59) 12/10/21 13:23 Sodium 135 mmol/L (136-145) L 12/10/21 13:22 Potassium 3.9 mmol/L (3.5-5.1) 12/10/21 13:22 Chloride 100 mmol/L (98-107) 12/10/21 13:22 Carbon Dioxide 22 mmol/L (22-29) 12/10/21 13:22 Anion Gap 16.9 (5-19) 12/10/21 13:22 BUN 22 mg/dL (8-23) 12/10/21 13:22 Creatinine 1.0 mg/dL (0.5-0.9) H 12/10/21 13:22 GFR Calculation 55.8 mL/min (90-130) L 12/10/21 13:22 Glucose 90 mg/dL (65-115) 12/10/21 13:22 POC Glucose 88 mg/dL (70-110) 12/11/21 06:11 Calculated Osmolality 283 mOsm/kg (285-295) L 12/10/21 13:22 Calcium 9.7 mg/dL (8.5-10.5) 12/10/21 13:22 Magnesium 2.0 mg/dL (1.7-2.3) 12/11/21 02:12 Troponin T Baseline 6 ng/L (0-10) 12/10/21 13:22 Troponin T 120 Minute 6.00 ng/L (0-10) 12/10/21 15:11 Delta Troponin T 0 ABS# (0-10) 12/10/21 15:11 Troponin T Hi Sens 6Hr 6.00 ng/L (0-10) 12/11/21 02:12 Troponin T Hi Sens 6Hr Delta 0 ng/L (0-12) 12/11/21 02:12 C-Reactive Protein 4.0 mg/L (0.0-4.9) 12/11/21 02:12 TSH 1.86 uIU/mL (0.27-4.20) 12/10/21 15:11 Vitals Last Vital Signs Temp 98.0 F 12/11/21 04:04 Pulse 92 12/11/21 08:26 Resp 18 12/11/21 04:04 BP 128/85 12/11/21 08:26 Pulse Ox 98 12/11/21 04:04 O2 Del Method 12/10/21 22:24 Discharge Plan Discharge Patient Disposition: Home Condition: Stable Prescriptions: No Action nitroglycerin 0.4 mg tablet, sublingual 0.4 mg sublingual Q5M PRN (Reason: chest pain) 30 Days Qty: 30 2RF Rx Instructions: do not exceed 3 doses per episode albuterol sulfate [ProAir HFA] 90 mcg/actuation HFA aerosol inhaler 2 puff INHALATION Q6H PRN (Reason: shortness of breath or wheezing) Qty: 8.5 5RF potassium chloride 8 mEq tablet extended release 8 meq PO DAILY Qty: 90 1RF montelukast 10 mg tablet 10 mg PO DAILY Qty: 90 1RF metoprolol tartrate 25 mg tablet 25 mg PO BID Qty: 180 1RF meloxicam 15 mg tablet 15 mg PO DAILY Qty: 90 1RF loratadine 10 mg tablet 10 mg PO DAILY Qty: 90 1RF furosemide [Lasix] 20 mg tablet 20 mg PO DAILY Qty: 90 1RF Rx Instructions: for edema fenofibrate nanocrystallized [Tricor] 145 mg tablet 145 mg PO DAILY Qty: 90 1RF cyclobenzaprine 10 mg tablet 10 mg PO TID PRN (Reason: muscle spasm) Qty: 180 1RF aspirin [Adult Aspirin Regimen] 81 mg tablet,delayed release (DR/EC) 81 mg PO DAILY Qty: 30 6RF Contrave 8-90 mg tablet extended release 2 tab PO Q12H Qty: 120 0RF Ozempic 0.25 mg or 0.5 mg(2 mg/1.5 mL) pen injector 0.5 mg SUBCUT .weekly Qty: 1.5 0RF Rx Instructions: on valsartan [Diovan] 40 mg tablet 40 mg PO DAILY Qty: 90 0RF zinc 50 mg Tablet 50 mg PO DAILY magnesium 200 mg Tablet 200 mg PO DAILY [place] 3 Fish Oil 684-1,200 mg Capsule,Delayed Release(Dr/Ec) 1 cap PO DAILY Vitamin D3 50 mcg (2,000 unit) Capsule 50 mcg PO DAILY Discharge Orders: Discharge Order (Routine); Ordered 12/11/21 Ordered By: Elida Gilbert Referrals: Cinda Gonzalez, RETURN CLERK-C [Primary Care Provider] - Discharge Diet: Advance as tolerated Discharge Activity: Increase activity as tolerated Patient Instructions: Chest Pain (ED), Opioid Safety Activity Restrictions/Additional Instructions: Your cardiac stress test was unremarkable, most likely a chest discomfort was related to GERD continue Protonix acid suppression medication also ruled out clot in your lungs, your chest x-ray is normal Some people develop gallbladder pain with Ozempic currently follow-up with your PCP Discharge Attestations Time Spent in Discharge Care*: less than 30 min Quality Metrics Clinical Quality Measures [ No reported AMI, CVA or VTE this stay] Coding Level of Care Code Acute Chg FW DC note Diagnoses Unstable angina I20.0
[2021-12-11 11:37] VITALS: BP 128/85; PULSE 92
[2021-12-11 12:00] VITALS: BP 119/72; PULSE 82; RESP 16; TEMP 36.8; O2SAT 96
[2021-12-11 13:07] LABS: Glucose Point of Care 104 mg/dL (70-110)
--- NOTE | 2021-12-11 20:02 | NMCV_ITS ---
NM jay perf SPECT r/s* [id number] Do Rosario Age: 66 Gender: F : 1955 Exam Date: 12/11/2021 07:09 Ordering Phys: Elida Gilbert MD Technologist: JULAI Larios Exam Location: [facility] Indications: CHEST PAIN STRESS TEST [facility] IMAGE PROTOCOL Rest/Stress 1 Exercise Day Radiopharmaceutical Dose (mCi) Administration Site Administered by Rest: Tc-99m 10.8 IV JULIA Benito Sestamibi Stress:Tc-99m 32.9 IV JULIA Benito Sestamilatha Rest: 11-Dec-2021 60 Discovery 630 Stress: 11-Dec-2021 15 Discovery 630 Radiopharmaceutical was injected at 85 % maximum heart rate. Images obtained in supine and prone position. SPECT RESULTS Technical Quality: Excellent Raw Data Analysis: Normal Image Corrections: No attenuation or motion correction applied Summed Stress Score: 0 Summed Rest Score: 2 Summed Difference Score: 0 PERFUSION FINDINGS SPECT images demonstrate homogeneous tracer distribution throughout the myocardium. FUNCTIONAL RESULTS (calculated via Gated SPECT) Stress Image LV EF (%): 90 Stress EDV (mL):58 TID: 1.07 Stress ESV (mL):6 FUNCTIONAL FINDINGS: There is normal left ventricular systolic function. IMPRESSIONS 1. Normal myocardial perfusion imaging with no evidence of ischemia 2. LV systolic function is normal Robert Pike MD (Electronically Signed) Final Date: 11 December 2021 11:05 S
== END 2021-12-11 13:45 | disposition home or self-care (01) ==
LOC: ER 15:45 → MEDSURG 16:41
PROVIDERS: Family Medicine; Admitting Provider Internal Medicine; Emergency Provider Emergency Medicine; PCP Nurse Practitioner; Visit Provider Internal Medicine
DX: I20.0 Unstable angina (principal); R07.89 Other chest pain; Z79.82 Long term (current) use of aspirin; F41.9 Anxiety disorder, unspecified; F32.A Depression, unspecified; K21.9 Gastro-esophageal reflux disease without esophagitis; I10 Essential (primary) hypertension; E78.5 Hyperlipidemia, unspecified; M79.10 Myalgia, unspecified site
CPT/HCPCS: 36415; 36416; 71045; 71275; 78452; 80048; 82962; 83735; 84443; 84484; 85025; 85378; 86140; 93005; 93017; 93306; 96372; 99285; A9500; G0378; J1650; Q9967

== ENCOUNTER → 2021-12-26 11:23 | Outpatient (BNVA) | payer BC, SELFPAY | PROVIDERS: PCP Nurse Practitioner; Visit Provider Nurse Practitioner | DX: E78.2 Mixed hyperlipidemia (principal); M79.10 Myalgia, unspecified site; I10 Essential (primary) hypertension; J30.89 Other allergic rhinitis; M17.10 Unilateral primary osteoarthritis, unspecified knee; E66.01 Morbid (severe) obesity due to excess calories; E78.5 Hyperlipidemia, unspecified | CPT/HCPCS: 80048; 80061 ==

== ENCOUNTER → 2022-03-24 08:21 | Outpatient (BNVA) | payer BC, SELFPAY | PROVIDERS: PCP Nurse Practitioner; Visit Provider Nurse Practitioner | DX: I10 Essential (primary) hypertension (principal) | CPT/HCPCS: 80053 ==

== ENCOUNTER → 2022-03-30 10:53 | Outpatient (BNVA) | payer BC, SELFPAY | PROVIDERS: PCP Nurse Practitioner; Visit Provider Nurse Practitioner | DX: R05.9 Cough, unspecified (principal); J45.990 Exercise induced bronchospasm; J45.40 Moderate persistent asthma, uncomplicated; I10 Essential (primary) hypertension | CPT/HCPCS: 71046; 85025; 87486; 87581; 87633 ==

== ENCOUNTER → 2022-07-21 09:30 | Outpatient (BNVA) | payer MEDICARE, SELFPAY | PROVIDERS: PCP Nurse Practitioner; Visit Provider Nurse Practitioner | DX: I10 Essential (primary) hypertension (principal) | CPT/HCPCS: 80053 ==

== ENCOUNTER 2022-09-24 14:57 | Emergency (ER) | payer MEDICARE, SELFPAY ==
[2022-09-24 14:59] VITALS: BP 148/94; PULSE 74; TEMP 36.8; O2SAT 98; BMI 29.8
--- NOTE | 2022-09-24 15:07 | US_ITS ---
WS: [id number] RIGHT UPPER QUADRANT ULTRASOUND HISTORY: ruq pain COMPARISON: None available. Liver: 15.4 cm in length. Normal size liver and echogenicity. No bile duct dilatation or mass. Portal Vein: Normal hepatopetal flow with monophasic waveform. Gallbladder: Normally distended. There is a very small amount of sludge in the gallbladder lumen. No wall thickening or pericholecystic fluid. CBD: 0.6 cm Pancreas: Normal size and echogenicity. Right kidney: 11.4 cm in length. Normal size and echogenicity. No hydronephrosis or mass. Aorta and IVC: Unremarkable abdominal aorta and IVC. No ascites. US/US gall bladder [id number] IMPRESSION: 1. Small amount of gallbladder sludge. 2. No evidence for acute cholecystitis.
--- NOTE | 2022-09-24 15:07 | W.ED.ABDPA2 ---
HPI - Abdominal Pain General: Chief Complaint: Abdominal Pain Stated Complaint: Abd pain Time Seen by Provider: 09/24/22 15:01 Source: patient and EMS Mode of arrival: EMS Limitations: no limitations History of Present Illness: 67-year-old female states she been having abdominal pain along with vomiting diarrhea over the last 3 days. States got much worse today she has had severe abdominal pain mainly in the right upper quadrant. States her pain is currently a 6 out of 10 she denies any worsening proving factors. She has had vomiting and diarrhea as well. Denies any known fevers. Associated Symptoms: Reports diarrhea, nausea and vomiting; Denies chills, dysuria and fever(s) Review of Systems Const: Denies: fever(s) or chills ENMT: Denies: throat pain or dental pain Card: Denies: chest pain Resp: Denies: dyspnea GI: Reports: abdominal pain, nausea, vomiting and diarrhea : Denies: dysuria Musc: Denies: neck pain or back pain Skin/Breast: Denies: rash All/Imm: Denies: urticaria PFSH ED PFSH: Medical History Anxiety and depression Asthma, exercise induced Chest pain Dyspnea Environmental and seasonal allergies GERD (gastroesophageal reflux disease) HTN, goal below 130/80 Hyperlipidemia, unspecified Knee arthropathy Migraine Myalgia Overweight with body mass index (BMI) 25.0-29.9 Tortuosity of artery Thoracic aorta Unstable angina Surgical History H/O reduction mammoplasty History of appendectomy History of hysterectomy Family History Other Asthma Diabetes Heart disease Denies family history of Bleeding disorder Social History Smoking and tobacco status: never smoked Second hand smoke exposure: No Smoking risk assessment/counseling performed?: No Alcohol intake: never Desire information about alcohol rehabilitation?: No Counseling given: No Substance/Drug Use: never Desire information about substance/drug rehabilitation?: No Counseling given: No Adopted: No Caregiver/support person: No Lives independently: Yes Household members: spouse Housing: House Marital status: service: No Do you think of yourself as: Straight/Heterosexual Current gender identity: Female Physical Exam Const: COMMON NORMALS: no acute distress, patient oriented x3 and healthy appearing HENMT: COMMON NORMALS: normocephalic and atraumatic HEAD & SCALP: normocephalic and atraumatic Eye: COMMON NORMALS: conjunctivae normal CONJUNCTIVA: Yes conjunctivae normal Neck/C-Spine: COMMON NORMALS: full ROM and supple Chest: COMMONS NORMALS: normal inspection of the chest and normal palpation of entire chest wall Resp: COMMON NORMALS: normal respiratory effort, No retractions, No use of accessory muscles and clear to auscultation bilaterally AUSCULTATION: clear to auscultation bilaterally Cardio: COMMON NORMALS: regular rate, regular rhythm and No murmurs present (Cardio) RATE: regular rate RHYTHM: regular rhythm GI: COMMON NORMALS: Normal to inspection, nondistended, normoactive bowel sounds present, Soft to palpation and no masses PALPATION: Yes Soft to palpation and Yes Tenderness to palpation present (GI) Details: RUQ Extremity: COMMON NORMALS: normal to inspection and full ROM Neuro: COMMON NORMALS: patient oriented x3, moves all extremities and no focal motor deficits Psych: COMMON NORMALS: mental status grossly normal, Normal thought process present and cooperative THOUGHT PROCESS: Normal thought process present Skin: COMMON NORMALS: no rashes or lesions noted and no wounds GENERAL SKIN EXAM: no rashes or lesions noted Course Vital Signs: Vital signs: Vital Signs Temperature 98.2 F 09/24/22 14:59 Pulse Rate 86 09/24/22 17:22 Respiratory Rate 18 09/24/22 15:56 Blood Pressure 122/75 09/24/22 17:22 Pulse Oximetry 96 09/24/22 17:22 Oxygen Delivery Me thod Room Air 09/24/22 17:22 MDM - Abdominal Pain Medical Decision Making Patient presents with abdominal pain is likely a gastritis or peptic ulcer disease as seen on CT her pain is much improved here after GI cocktail blood work here is all normal she has no signs of acute surgical abdomen we will start her on hydrocodone along with Protonix and sulcal fate we will get her follow-up with a general surgeon as she likely needs an EGD she is to return if worsening. Medical Records I reviewed the patient's medical records. Lab Data I reviewed the patient's lab results. 09/24/22 15:25 09/24/22 15:25 Labs/Radiology: Radiology Impressions Gallbladder Ultrasound 09/24/22 15:07 IMPRESSION: 1. Small amount of gallbladder sludge. 2. No evidence for acute cholecystitis. Abdomen/Pelvis CT 09/24/22 15:53 IMPRESSION: 1. Mild wall thickening and mucosal enhancement in the distal stomach and duodenum could represent peptic ulcer disease or gastroduodenitis. 2. Diverticulosis of the colon without diverticulitis. 3. Fluid distended gallbladder with no visible stones. Laboratory Results WBC 4.6 10^3/uL (4.0-10.0) 09/24/22 15:25 RBC 4.20 10^6/uL (4.1-5.3) 09/24/22 15:25 Hgb 13.0 g/dL (11.5-15.3) 09/24/22 15:25 Hct 38.6 % (37.0-47.0) 09/24/22 15:25 MCV 91.9 fl (81-99) 09/24/22 15:25 MCH 31.0 pg (28.0-34.0) 09/24/22 15:25 MCHC 33.7 g/dL (30.0-36.0) 09/24/22 15:25 RDW 12.7 % (12.1-15.1) 09/24/22 15:25 Plt Count 167 10^3/cmm (130-400) 09/24/22 15:25 MPV 9.1 fL (7.4-10.4) 09/24/22 15:25 Neut % (Auto) 82.6 % 09/24/22 15:25 Lymph % (Auto) 10.1 % 09/24/22 15:25 [place] % (Auto) 6.9 % 09/24/22 15:25 Eos % (Auto) 0.0 % 09/24/22 15:25 Baso % (Auto) 0.2 % 09/24/22 15:25 Neut # (Auto) 3.83 10^3/uL (1.8-7.7) 09/24/22 15:25 Lymph # (Auto) 0.5 10^3/uL (0.8-4.8) L 09/24/22 15:25 [place] # (Auto) 0.3 10^3/uL (0.2-0.9) 09/24/22 15:25 Eos # (Auto) 0.0 10^3/uL (0.0-0.8) 09/24/22 15:25 Baso # (Auto) 0.0 10^3/uL (0.0-0.1) 09/24/22 15:25 Nucleated RBC % (auto) 0 % 09/24/22 15:25 Nucleated RBCs # 0.0 /100WBC 09/24/22 15:25 Sodium 134 mmol/L (136-145) L 09/24/22 15:25 Potassium 3.3 mmol/L (3.5-5.1) L 09/24/22 15:25 Chloride 102 mmol/L (98-107) 09/24/22 15:25 Carbon Dioxide 20 mmol/L (22-29) L 09/24/22 15:25 Anion Gap 15.3 (5-19) 09/24/22 15:25 BUN 16 mg/dL (8-23) 09/24/22 15:25 Creatinine 0.7 mg/dL (0.5-0.9) 09/24/22 15:25 GFR Calculation 84.0 mL/min (90-130) L 09/24/22 15:25 Glucose 96 mg/dL (65-115) 09/24/22 15:25 Calculated Osmolality 279 mOsm/kg (285-295) L 09/24/22 15:25 Calcium 7.6 mg/dL (8.5-10.5) L 09/24/22 15:25 Total Bilirubin 0.3 mg/dL (0.15-1.2) 09/24/22 15:25 AST 18 U/L (0-32) 09/24/22 15:25 ALT 15 U/L (0-33) 09/24/22 15:25 Alkaline Phosphatase 38 U/L (35-105) 09/24/22 15:25 Total Protein 6.2 g/dL (6.6-8.7) L 09/24/22 15:25 Albumin 3.7 g/dL (3.5-5.2) 09/24/22 15:25 Globulin 2.5 g/dL (1.3-4.6) 09/24/22 15:25 Lipase 74 U/L (13-60) H 09/24/22 15:25 EKG Data EKG 1: I personally reviewed and interpreted this EKG as follows: EKG interpretation date: 09/24/22 EKG interpretation time: 16:12 Interpretation: nsr hr [address] or t wave abnormalities qrs 97 qtc 448 Discharge Plan Discharge Patient Disposition: Home Clinical Impression: Abdominal pain Condition: Stable Prescriptions: New Protonix 40 mg tablet,delayed release (DR/EC) 40 mg PO BID Qty: 60 0RF sucralfate 1 gram tablet 1 g PO BID 28 Days Qty: 56 0RF hydrocodone-acetaminophen 5-325 mg tablet 1 tab PO Q6H PRN (Reason: pain) Qty: 14 0RF ondansetron 4 mg tablet,disintegrating 4 mg PO Q6H PRN (Reason: nausea and vomiting) Qty: 14 0RF Discontinued famotidine [Pepcid] 40 mg tablet 40 mg PO DAILY Qty: 30 2RF No Action nitroglycerin 0.4 mg tablet, sublingual 0.4 mg sublingual Q5M PRN (Reason: chest pain) 30 Days Qty: 30 2RF Rx Instructions: do not exceed 3 doses per episode albuterol sulfate [ProAir HFA] 90 mcg/actuation HFA aerosol inhaler 2 puff INHALATION Q6H PRN (Reason: shortness of breath or wheezing) Qty: 8.5 5RF albuterol sulfate 2.5 mg /3 mL (0.083 %) solution for nebulization 2.5 mg inhalation Q4H PRN (Reason: shortness of breath or wheezing) Qty: 75 2RF (DME) Disposable nebulizer circuit See Rx Instructions .ROUTE .MEDSUPPLY Qty: 1 0RF Rx Instructions: As directed polyethylene glycol 3350 [Miralax] 17 gram/dose powder 17 g PO DAILY Qty: 510 2RF valsartan [Diovan] 40 mg tablet 40 mg PO DAILY Qty: 90 1RF metoprolol tartrate 25 mg tablet 25 mg PO BID Qty: 180 1RF loratadine 10 mg tablet 10 mg PO DAILY Qty: 90 1RF fenofibrate nanocrystallized [Tricor] 145 mg tablet 145 mg PO DAILY Qty: 90 1RF cyclobenzaprine 10 mg tablet 10 mg PO TID PRN (Reason: muscle spasm) Qty: 180 1RF (DME) pen needle, diabetic 33 gauge x 5/32 needle See Rx Instructions .ROUTE .MEDSUPPLY Qty: 100 5RF Rx Instructions: 1 time day Victoza 3-Jonathan 0.6 mg/0.1 mL (18 mg/3 mL) pen injector 1.2 mg SUBCUT DAILY Qty: 9 0RF Rx Instructions: (pt states stop taking almost 2 months ago but states she wants to talk to larry chris before removing from her med list 09/24/22) Contrave 8-90 mg tablet extended release 2 tab PO Q12H Qty: 120 0RF magnesium 200 mg Tablet 200 mg PO DAILY [place] 3 Fish Oil 684-1,200 mg Capsule,Delayed Release(Dr/Ec) 1 cap PO DAILY cholecalciferol (vitamin D3) [Vitamin D3] 50 mcg (2,000 unit) Capsule 50 mcg PO DAILY zinc acetate 50 mg (zinc) Capsule 50 mg PO DAILY Tylenol Arthritis 650 mg Tablet Extended Release 1,300 mg PO BEDTIME Adult Aspirin Regimen 81 mg tablet,delayed release (DR/EC) 81 mg PO BEDTIME potassium chloride 8 mEq tablet extended release 8 meq PO QAM Pulmicort 0.5 mg/2 mL suspension for nebulization 0.5 mg inhalation BID PRN (Reason: Shortness Of Breath) montelukast 10 mg tablet 10 mg PO QAM Lasix 20 mg tablet 20 mg PO QAM Rx Instructions: for edema Discharge Orders: Discharge ED (Routine); Ordered 09/24/22 Ordered By: Emily Castrejon Referrals: Bernardo Martinez DO [Physician] - 1-3 days Cinda Chris, WEB DEVELOPMENT CONSULTANT-C [Primary Care Provider] - Discharge Diet: Advance as tolerated Discharge Activity: Resume usual activity Patient Instructions: Gastritis (ED), Abdominal Pain (ED) Coding Level of Care Code ED Information Systems Security Analyst for Lindsay Carroll
[2022-09-24 15:10] VITALS: BP 148/94; PULSE 76; RESP 16; O2SAT 94
[2022-09-24 15:35] LABS: Basophils % 0.2 %; Hematocrit 38.6 % (37.0-47.0); Lymphocytes # 0.5 10^3/uL (0.8-4.8); Lymphocytes % 10.1 %; Mean Corpuscular HGB Conc 33.7 g/dL (30.0-36.0); Mean Corpuscular Volume 91.9 fl (81-99); Mean Platelet Volume 9.1 fL (7.4-10.4); Monocytes # 0.3 10^3/uL (0.2-0.9); Monocytes % 6.9 %; Neutrophils # 3.83 10^3/uL (1.8-7.7); Neutrophils % 82.6 %; Nucleated Red Blood Cells % 0 %; Platelet Count 167 10^3/cmm (130-400); Red Cell Distribution Width 12.7 % (12.1-15.1); White Blood Count 4.6 10^3/uL (4.0-10.0)
--- NOTE | 2022-09-24 15:53 | CTR_ITS ---
PROCEDURE INFORMATION: Exam: CT Abdomen And Pelvis With Contrast Exam date and time: 09/24/2022 4:35 PM Age: 67 years old Clinical indication: Abdominal pain; Generalized; Additional info: Abd pain TECHNIQUE: Imaging protocol: Computed tomography of the abdomen and pelvis with contrast. Radiation optimization: All CT scans at this facility use at least one of these dose optimization techniques: automated exposure control; mA and/or kV adjustment per patient size (includes targeted exams where dose is matched to clinical indication); or iterative reconstruction. Contrast material: OMNI 350; Contrast volume: 100 ml; Contrast route: INTRAVENOUS (IV); REPORTING DATA: Count of CT and Cardiac NM exams in prior 12 months: This patient has received 2 known CTs and 0 known cardiac nuclear medicine studies in the 12 months prior to the current study. COMPARISON: US gall bladder [id number] 09/24/2022 3:29 PM RADIATION DOSE METRICS: Total DLP (mGy-cm): 577 FINDINGS: Liver: Normal. No mass. Gallbladder and bile ducts: Fluid distended gallbladder. No visible wall thickening or gallstones. The bile ducts are normal. Pancreas: Normal. No ductal dilation. Spleen: Calcified granulomas in the spleen. Adrenal glands: Normal. No mass. Kidneys and ureters: Normal. No hydronephrosis. Stomach and bowel: Mild wall thickening and mucosal enhancement in the distal stomach and duodenum. Diverticulosis of the distal colon. No diverticulitis. The J Kathryn amend ileum are unremarkable. No obstruction. Appendix: The appendix is not visualized. No secondary signs of appendicitis. Intraperitoneal space: Unremarkable. No free air. No significant fluid collection. Vasculature: Unremarkable. No abdominal aortic aneurysm. Lymph nodes: Unremarkable. No enlarged lymph nodes. Urinary bladder: Unremarkable as visualized. Reproductive: The uterus and ovaries are absent. Bones/joints: Degenerative changes of the spine and hip joints. No acute fracture. Soft tissues: Small fat containing umbilical hernia. CT/CT abdomen pelvis w con* [id number] IMPRESSION: 1. Mild wall thickening and mucosal enhancement in the distal stomach and duodenum could represent peptic ulcer disease or gastroduodenitis. 2. Diverticulosis of the colon without diverticulitis. 3. Fluid distended gallbladder with no visible stones.
--- NOTE | 2022-09-24 15:53 | XRR_ITS ---
PROCEDURE INFORMATION: Exam: XR Chest Exam date and time: 09/24/2022 3:59 PM Age: 67 years old Clinical indication: Other: Abdominal pain; Prior surgery; Surgery date: 6+ months; Patient HX: History of breast reduction. ; Additional info: Abd pain TECHNIQUE: Imaging protocol: Radiologic exam of the chest. Views: 1 view. COMPARISON: CR XR chest 2V* [id number] 03/30/2022 10:53 AM FINDINGS: Lungs: Lungs are clear. Pleural spaces: There is no pleural effusion or pneumothorax. Heart/Mediastinum: Cardiomediastinal contours are unremarkable. Bones/joints: Bones are unremarkable. XR/XR chest 1V portable [id number] IMPRESSION: No acute findings.
--- NOTE | 2022-09-24 15:53 | ECG_ITS ---
[facility] Test Date: 2022-09-24 Pat Name: Do Rosairo Department: Room: Gender: Female Physical Therapist Aide: : 1955 Requested By: Emily Castrejon Order Number: [id number] Amita MD: Robert Pike M.D. Measurements Intervals [place] Rate: 75 P: 65 LA: 147 QRS: -12 QRSD: 97 T: 53 QT: 418 QTc: 470 Interpretive Statements SINUS RHYTHM NONSPECIFIC T-WAVE ABNORMALITY Compared to ECG 12/10/2021 18:17:12 No significant changes Electronically Signed On 09-24-2022 17:36:06 CDT by Robert Pike M.D. [email or web address] [email or web address] Industrieseast [id number]
[2022-09-24 15:56] VITALS: BP 117/75; PULSE 80; RESP 18; O2SAT 97
[2022-09-24 16:19] LABS: Alanine Aminotransferase 15 U/L (0-33); Albumin Level 3.7 g/dL (3.5-5.2); Alkaline Phosphatase 38 U/L (35-105); Anion Gap 15.3 (5-19); Aspartate Amino Transferase 18 U/L (0-32); Blood Urea Nitrogen 16 mg/dL (8-23); Calcium 7.6 mg/dL (8.5-10.5); Carbon Dioxide 20 mmol/L (22-29); Chloride 102 mmol/L (98-107); Globulin 2.5 g/dL (1.3-4.6); Glucose 96 mg/dL (65-115); Lipase 74 U/L (13-60); Osmolality Calculated 279 mOsm/kg (285-295); Potassium 3.3 mmol/L (3.5-5.1); Sodium 134 mmol/L (136-145); Total Bilirubin 0.3 mg/dL (0.15-1.2); Total Protein 6.2 g/dL (6.6-8.7)
[2022-09-24] MEDS: iohexol 350 mg/mL 500 mL Btl (per mL) IV (16:45)
[2022-09-24] MEDS: ondansetron 2 mg/ML SDV 2 mL 4 MG IVP (17:06)
[2022-09-24] MEDS: morphine 4 mg/mL SDV 1 mL IVP (17:07)
[2022-09-24] MEDS: lidocaine 2% viscous 15 ML, aluminum-mag hydrox-simethicon 30 ML, sucralfate oral liq 1 GM PO (17:13)
[2022-09-24 17:22] VITALS: BP 122/75; PULSE 86; O2SAT 96
[2022-09-24 17:59] VITALS: BP 117/78; PULSE 83; O2SAT 95
--- NOTE | 2022-09-25 08:50 | DCPLANNER ---
Addendum entered by Jacquie Gonzales 10/30/22 10:21: Patient had a follow up appointment scheduled with general surgery - patient did attend appointment. Addendum entered by Jacquie Gonzales 10/01/22 10:33: Patient has a follow up appointment scheduled for Thursday, October 20, 2022 at 1:[address] Martinez at general surgery. Original Note: product management manager had message to schedule a follow up appointment for patient with general surgery. product management manager sent patients information to the front office staff at general surgery. Patients information will be printed and reviewed. Clinic will call patient with appointment information.
== END 2022-09-24 18:01 | disposition home or self-care (01) ==
PROVIDERS: Emergency Provider Emergency Medicine; PCP Nurse Practitioner
DX: R10.11 Right upper quadrant pain (principal); Z79.82 Long term (current) use of aspirin; I10 Essential (primary) hypertension; E78.5 Hyperlipidemia, unspecified; K57.30 Diverticulosis of large intestine without perforation or abscess without bleeding
CPT/HCPCS: 36415; 71045; 74177; 76705; 80053; 83690; 85025; 93005; 96374; 96375; 99285; J2270; J2405; Q9967

== ENCOUNTER → 2022-10-20 12:59 | Outpatient (BNVA) | payer MEDICARE, SELFPAY | PROVIDERS: PCP Nurse Practitioner; Visit Provider Surgery | DX: K29.70 Gastritis, unspecified, without bleeding (principal); K82.8 Other specified diseases of gallbladder; R19.7 Diarrhea, unspecified; R10.9 Unspecified abdominal pain; Z11.2 Encounter for screening for other bacterial diseases; Z90.49 Acquired absence of other specified parts of digestive tract | CPT/HCPCS: 99203 ==

== ENCOUNTER → 2022-11-24 13:04 | Outpatient (BNVA) | payer MEDICARE, SELFPAY | PROVIDERS: PCP Nurse Practitioner; Visit Provider Internal Medicine | DX: I10 Essential (primary) hypertension (principal); E78.2 Mixed hyperlipidemia; J45.990 Exercise induced bronchospasm; Z87.898 Personal history of other specified conditions | CPT/HCPCS: 99214 ==

== ENCOUNTER 2022-12-09 09:03 | Day surgery (SDC) | payer MEDICARE, SELFPAY ==
[2022-12-07 14:08] VITALS: BMI 31.1
[2022-12-09 09:46] VITALS: BP 110/84; PULSE 51; RESP 18; TEMP 36.4; O2SAT 95
[2022-12-09] MEDS: sodium chloride 0.9% 1,000 ML 30 ML IV (10:15)
--- NOTE | 2022-12-09 10:32 | P.ANESASSM_ITS ---
Pre-Anesthetic Assessment Height/Weight: Height 1.57 m Weight 77.111 kg Temp Pulse Resp BP Pulse Ox 97.5 F L 51 L 18 110/84 95 12/09/22 09:46 12/09/22 09:46 12/09/22 09:46 12/09/22 09:46 12/09/22 09:46 Operation Date: 12/09/22 10:30 Proposed Procedures p [id number] egd [id number] colon(Not Applicable) - DO chriss Engle Colonoscopy(Not Applicable) - Bernardo Martinez DO Familial anesthetic complications: patient reports she is slow to wake Was Beta Ej taken within 24 hours: Yes Was Clonidine taken within 24 hours: N/A Last intake: Intake Last Liquid Date 12/08/22 Last Liquid Time 21:30 Last Solid Date 12/07/22 Last Solid Time 19:00 Social No alcohol and No tobacco Exam alert, oriented x 3, clear to auscultation bilaterally and regular rate & rhythm Airway Submandibular: within normal limits Cervical ROM: within normal limits Mallampati: Class II History/ROS No significant history except as noted Pulmonary Asthma possible sleep apnea CV/HEM Hypertension bulging thoracic aorta denies chest pain. several months since took nitro None reported Hepatic None reported GI Gastroesophageal Reflux Disease uncontrolled but no curretn symptoms Metabolic Diabetes Mellitus and Hyperlipidemia pre [facility] None reported Neuropsych Anxiety and Depression Anesthetic Plan ASA status: 3 Anesthesia: Anesthesia Evaluation and MAC Risk of > 500 ml blood loss (7ml/kg in children): Yes, adequate IV access and fluids planned Medications/Allergies Home Medications Medication Instructions Recorded Confirmed Last Taken Type nitroglycerin 0.4 mg sublingual 0.4 mg sublingual Q5M PRN chest 06/25/20 3 12/10/21 Rx tablet pain 30 days #30 tabs albuterol sulfate 90 mcg/actuation 2 puff inhalation Q6H PRN 01/06/21 12/07/22 12/08/22 Rx aerosol inhaler (ProAir HFA) shortness of breath or wheezing #8.5 grams cholecalciferol (vitamin D3) 50 50 mcg PO DAILY 12/10/21 12/07/22 12/08/22 History mcg (2,000 unit) capsule (Vitamin D3) magnesium 200 mg tablet 200 mg PO DAILY 12/10/21 12/07/22 12/08/22 History omega-3 fatty acids-fish oil 684 1 cap PO DAILY 12/10/21 12/07/22 12/08/22 History mg-1,200 mg capsule,delayed release pen needle, diabetic 33 gauge x #100 ea 03/02/22 12/07/22 12/07/22 Rx 5/32 Disposable nebulizer circuit #1 ea 03/30/22 12/07/22 12/07/22 Rx albuterol sulfate 2.5 mg/3 mL 2.5 mg (3 mL) inhalation Q4H PRN 03/30/22 12/07/22 12/08/22 Rx (0.083 %) solution for nebulization shortness of breath or wheezing #75 mL cyclobenzaprine 10 mg tablet 10 mg PO TID PRN muscle spasm #180 07/21/22 12/07/22 12/08/22 Rx tabs fenofibrate nanocrystallized 145 145 mg PO DAILY #90 tabs 07/21/22 12/07/22 12/08/22 Rx mg tablet (Tricor) loratadine 10 mg tablet 10 mg PO DAILY #90 tabs 07/21/22 12/07/22 12/08/22 Rx metoprolol tartrate 25 mg tablet 25 mg PO BID #180 tabs 07/21/22 12/07/22 12/08/22 Rx polyethylene glycol 3350 17 17 g PO DAILY #510 grams 07/21/22 12/07/22 12/08/22 Rx gram/dose oral powder (Miralax) valsartan 40 mg tablet (Diovan) 40 mg PO DAILY #90 tabs 07/21/22 12/07/22 12/08/22 Rx acetaminophen 650 mg 1,300 mg PO BEDTIME 09/24/22 12/07/22 12/08/22 History tablet,extended release aspirin 81 mg tablet,delayed 81 mg PO BEDTIME 09/24/22 12/07/22 12/04/22 History release (Adult Aspirin Regimen) budesonide 0.5 mg/2 mL suspension 0.5 mg inhalation BID PRN 09/24/22 12/07/22 12/08/22 History for nebulization (Pulmicort) Shortness Of Breath furosemide 20 mg tablet (Lasix) 20 mg PO QAM 09/24/22 12/07/22 12/08/22 History montelukast 10 mg tablet 10 mg PO QAM 09/24/22 12/07/22 12/08/22 History ondansetron 4 mg disintegrating 4 mg PO Q6H PRN nausea and 09/24/22 12/07/22 12/08/22 Rx tablet vomiting #14 tabs potassium chloride 8 mEq 8 meq PO QAM 09/24/22 12/07/22 12/08/22 History tablet,extended release zinc acetate 50 mg (zinc) capsule 50 mg PO DAILY 09/24/22 12/07/22 12/08/22 History pantoprazole 40 mg tablet,delayed 40 mg PO BID 6 weeks #84 tabs 10/20/22 12/07/22 12/08/22 Rx release (Protonix) naltrexone 8 mg-bupropion 90 mg 2 tab PO Q12H #120 tabs 11/23/22 12/07/22 12/04/22 Rx tablet,extended release (Contrave) Allergies Allergy/AdvReac Type Severity Reaction Status Date / Time methocarbamol [From Robaxin] Allergy Unknown Unknown Verified 12/09/22 09:50 codeine Allergy Itching Verified 12/09/22 09:50 sulfa Drugs Allergy Unknown Rash Uncoded 11/24/22 13:32 Current Medications Generic Name Dose Route Start Last Admin Trade Name Freq PRN Reason Stop Dose Admin Sodium Chloride 1,000 mls @ 30 mls/hr 12/09/22 09:45 12/09/22 10:15 Sodium Chloride 0.9% IV 12/10/22 09:44 30 mls/hr .Q24H YOEL Administration PFSH Anesthesia Medical History Anxiety and depression Asthma, exercise induced Chest pain Dyspnea Environmental and seasonal allergies GERD (gastroesophageal reflux disease) HTN, goal below 130/80 Hyperlipidemia, unspecified Knee arthropathy Migraine Myalgia Tortuosity of artery Thoracic aorta Unstable angina Surgical History H/O reduction mammoplasty History of appendectomy History of hysterectomy Family History Other Asthma Diabetes Heart disease Denies family history of Bleeding disorder Social History Smoking and tobacco status: never smoked Second hand smoke exposure: No Smoking risk assessment/counseling performed?: No Alcohol intake: never Desire information about alcohol rehabilitation?: No Counseling given: No Substance/Drug Use: never Desire information about substance/drug rehabilitation?: No Counseling given: No Adopted: No Caregiver/support person: No Lives independently: Yes Household members: spouse Housing: House Marital status: service: No Do you think of yourself as: Straight/Heterosexual Current gender identity: Female Data Anesthesia Cardiac Studies: Echocardiogram 12/10/21 Sestamibi Stress Test (Cardiology) 12/11
--- NOTE | 2022-12-09 11:01 | PM.HP ---
Providers/Chief Complaint Primary Care Provider: ELVA Chua Chief Complaint: Z12.11, K82.8, K29.70 History of Present Illness Do Rosario is a 67 year old female Medications/Allergies Home Medications Medication Instructions Recorded Confirmed Last Taken Type nitroglycerin 0.4 mg sublingual 0.4 mg sublingual Q5M PRN chest 06/25/20 12/09/22 12/10/21 Rx tablet pain 30 days #30 tabs albuterol sulfate 90 mcg/actuation 2 puff inhalation Q6H PRN 01/06/21 12/07/22 12/08/22 Rx aerosol inhaler (ProAir HFA) shortness of breath or wheezing #8.5 grams cholecalciferol (vitamin D3) 50 50 mcg PO DAILY 12/10/21 12/07/22 12/08/22 History mcg (2,000 unit) capsule (Vitamin D3) magnesium 200 mg tablet 200 mg PO DAILY 12/10/21 12/07/22 12/08/22 History omega-3 fatty acids-fish oil 684 1 cap PO DAILY 12/10/21 12/07/22 12/08/22 History mg-1,200 mg capsule,delayed release pen needle, diabetic 33 gauge x #100 ea 03/02/22 12/07/22 12/07/22 Rx 32 Disposable nebulizer circuit #1 ea 03/30/22 12/07/22 12/07/22 Rx albuterol sulfate 2.5 mg/3 mL 2.5 mg (3 mL) inhalation Q4H PRN 03/30/22 12/07/22 12/08/22 Rx (0.083 %) solution for nebulization shortness of breath or wheezing #75 mL cyclobenzaprine 10 mg tablet 10 mg PO TID PRN muscle spasm #180 07/21/22 12/07/22 12/08/22 Rx tabs fenofibrate nanocrystallized 145 145 mg PO DAILY #90 tabs 07/21/22 12/07/22 12/08/22 Rx mg tablet (Tricor) loratadine 10 mg tablet 10 mg PO DAILY #90 tabs 07/21/22 12/07/22 12/08/22 Rx metoprolol tartrate 25 mg tablet 25 mg PO BID #180 tabs 03/12/07/22 12/08/22 Rx polyethylene glycol 3350 17 17 g PO DAILY #510 grams 07/21/22 12/07/22 12/08/22 Rx gram/dose oral powder (Miralax) valsartan 40 mg tablet (Diovan) 40 mg PO DAILY #90 tabs 07/21/22 12/07/22 12/08/22 Rx acetaminophen 650 mg 1,300 mg PO BEDTIME 09/24/22 12/07/22 12/08/22 History tablet,extended release aspirin 81 mg tablet,delayed 81 mg PO BEDTIME 09/24/22 12/07/22 12/04/22 History release (Adult Aspirin Regimen) budesonide 0.5 mg/2 mL suspension 0.5 mg inhalation BID PRN 09/24/22 12/07/22 12/08/22 History for nebulization (Pulmicort) Shortness Of Breath furosemide 20 mg tablet (Lasix) 20 mg PO QAM 09/24/22 12/07/22 12/08/22 History montelukast 10 mg tablet 10 mg PO QAM 09/24/22 12/07/22 12/08/22 History ondansetron 4 mg disintegrating 4 mg PO Q6H PRN nausea and 09/24/22 12/07/22 12/08/22 Rx tablet vomiting #14 tabs potassium chloride 8 mEq 8 meq PO QAM 09/24/22 12/07/22 12/08/22 History tablet,extended release zinc acetate 50 mg (zinc) capsule 50 mg PO DAILY 09/24/22 12/07/22 12/08/22 History pantoprazole 40 mg tablet,delayed 40 mg PO BID 6 weeks #84 tabs 10/20/22 12/07/22 12/08/22 Rx release (Protonix) naltrexone 8 mg-bupropion 90 mg 2 tab PO Q12H #120 tabs 11/23/22 12/07/22 12/04/22 Rx tablet,extended release (Contrave) Allergies Allergy/AdvReac Type Severity Reaction Status Date / Time methocarbamol [From Robaxin] Allergy Unknown Unknown Verified 12/09/22 09:50 codeine Allergy Itching Verified 12/09/22 09:50 sulfa Drugs Allergy Unknown Rash Uncoded 11/24/22 13:32 PFSH Acute PFSH: Medical History Anxiety and depression Asthma, exercise induced Chest pain Dyspnea Environmental and seasonal allergies GERD (gastroesophageal reflux disease) HTN, goal below 130/80 Hyperlipidemia, unspecified Knee arthropathy Migraine Myalgia Tortuosity of artery Thoracic aorta Unstable angina Surgical History H/O reduction mammoplasty History of appendectomy History of hysterectomy Family History Other Asthma Diabetes Heart disease Denies family history of Bleeding disorder Social History Smoking and tobacco status: never smoked Second hand smoke exposure: No Smoking risk assessment/counseling performed?: No Alcohol intake: never Desire information about alcohol rehabilitation?: No Counseling given: No Substance/Drug Use: never Desire information about substance/drug rehabilitation?: No Counseling given: No Adopted: No Caregiver/support person: No Lives independently: Yes Household members: spouse Housing: House Marital status: service: No Do you think of yourself as: Straight/Heterosexual Current gender identity: Female Vitals/I&O/Wt Last Vital Signs Temp 97.5 F L 12/09/22 09:46 Pulse 51 L 12/09/22 09:46 Resp 18 12/09/22 09:46 BP 110/84 12/09/22 09:46 Pulse Ox 95 12/09/22 09:46 Weight last 48 hrs Weight 170 lb A&P Assessment and plan (1) Colon cancer screening: (2) GERD (gastroesophageal reflux disease): (3) Abdominal pain: Plan EGD and colonoscopy Attestations Medical Necessity Statement*: Home Coding Level of Care Code Acute Code for Chg Fwd Diagnoses Colon cancer screening Z12.11 GERD (gastroesophageal reflux disease) K21.9 Abdominal pain R10.9
[2022-12-09 11:40] VITALS: BP 111/60; PULSE 61; RESP 18; TEMP 36.1; O2SAT 96
[2022-12-09 11:50] VITALS: BP 107/71; PULSE 56; RESP 18; O2SAT 94
[2022-12-09 12:08] VITALS: BP 119/52; PULSE 60; RESP 18; O2SAT 94
--- NOTE | 2022-12-09 14:25 | ANE.PACU2 ---
Inpatient post-anesthesia follow up: Airway intact: Yes Vital signs: Temperature 97.0 F Pulse Rate 60 Respiratory Rate 18 Blood Pressure 119/52 Pulse Oximetry 94 Oxygen Delivery Me thod Room Air Oxygen Flow Rate Fraction of Inspir ed Oxygen Hydration adequate: Yes Nausea and vomiting: No Pain level: 2 Mental status: Baseline
== END 2022-12-09 12:20 | disposition home or self-care (01) ==
PROVIDERS: PCP Nurse Practitioner; Visit Provider Surgery
PROC: 0DJ08ZZ Inspection of Upper Intestinal Tract, Via Natural or Artificial Opening Endoscopic (ICD-10-PCS; CPT 43235; principal; 2022-12-09 10:30)
PROC: 0DJD8ZZ Inspection of Lower Intestinal Tract, Via Natural or Artificial Opening Endoscopic (ICD-10-PCS; CPT 45378; 2022-12-09 10:30)
DX: R10.13 Epigastric pain (principal); K63.89 Other specified diseases of intestine; K29.50 Unspecified chronic gastritis without bleeding; Z12.11 Encounter for screening for malignant neoplasm of colon; K21.9 Gastro-esophageal reflux disease without esophagitis; G47.30 Sleep apnea, unspecified; E11.9 Type 2 diabetes mellitus without complications; E78.5 Hyperlipidemia, unspecified; Z79.82 Long term (current) use of aspirin; I10 Essential (primary) hypertension
CPT/HCPCS: 43239; 45385; 88305; 88342; J2704; J7030

== ENCOUNTER → 2023-01-05 15:02 | Outpatient (BNVA) | payer MEDICARE, SELFPAY | PROVIDERS: PCP Nurse Practitioner; Visit Provider Surgery | DX: Z09 Encounter for follow-up examination after completed treatment for conditions other than malignant neoplasm (principal) | CPT/HCPCS: 99213 ==

== ENCOUNTER 2023-02-17 10:52 | Outpatient (CLI) | payer MEDICARE, SELFPAY ==
--- NOTE | 2023-02-17 10:57 | MM_ITS ---
WS: [id number] SCREENING DIGITAL BREAST TOMOSYNTHESIS MAMMOGRAM WITH CAD HISTORY: Z12.31 - Encounter for screening mammogram for malignant ... COMPARISON: 01/24/2022 and 01/21/2018 Bilateral CC and MLO with tomosynthesis and synthetic mammography submitted. Computer aided detection analyzed. Breast composition: The breasts are almost entirely fatty. New intramammary lymph nodes are identifie d in the upper outer quadrant of the LEFT breast. Fatty tara are present. RIGHT breast is negative. IMPRESSION: MM/[place] [id number] BI-RADS: 2-Benign FOLLOW UP: 1 Year Follow-up
== END 2023-02-17 10:53 | disposition home or self-care (01) ==
LOC: RAD 10:52
PROVIDERS: PCP Nurse Practitioner; Visit Provider Nurse Practitioner
DX: Z12.31 Encounter for screening mammogram for malignant neoplasm of breast (principal)
CPT/HCPCS: 77063; 77067

== ENCOUNTER → 2023-11-30 12:45 | Outpatient (BNVA) | payer MEDICARE, SELFPAY | PROVIDERS: PCP Nurse Practitioner; Visit Provider Internal Medicine | DX: J45.990 Exercise induced bronchospasm (principal); R07.9 Chest pain, unspecified; I10 Essential (primary) hypertension; E78.2 Mixed hyperlipidemia | CPT/HCPCS: 99214 ==

== ENCOUNTER → 2024-02-17 07:39 | Outpatient (BNVA) | payer MEDICARE, SELFPAY | PROVIDERS: PCP Nurse Practitioner; Visit Provider Podiatrist Foot & Ankle Surgery | DX: M79.672 Pain in left foot (principal); M72.2 Plantar fascial fibromatosis; M76.62 Achilles tendinitis, left leg; R60.9 Edema, unspecified | CPT/HCPCS: 20550; 73630; 99203; J1100; J3301 ==

== ENCOUNTER → 2024-03-14 08:24 | Outpatient (BNVA) | payer MEDICARE, SELFPAY | PROVIDERS: PCP Nurse Practitioner; Visit Provider Podiatrist Foot & Ankle Surgery | DX: M79.672 Pain in left foot (principal); M76.62 Achilles tendinitis, left leg; M72.2 Plantar fascial fibromatosis; R60.9 Edema, unspecified | CPT/HCPCS: 99213 ==

== ENCOUNTER 2024-11-17 14:05 | Outpatient (CLI) | payer MEDICARE, SELFPAY ==
--- NOTE | 2024-11-17 14:15 | USCV_ITS ---
Do Rosario Age: 69 Gender: F : 1955 Exam Date: 11/17/2024 14:38 Ordering Phys: Robert Pike M.D ([email or web address]) Technologist: Grant Mcginnis Exam Location: [facility] – [place] Indication: tricuspid regurg BP: 122 / 74 HR: 73 Rhythm: Sinus Technical Quality: Adequate MEASUREMENTS (Male / Female) Normal Values 2D ECHO LV Diastolic Diameter PLAX 4.3 cm 4.2 - 5.9 / 3.9 - 5.3 cm IVS Diastolic Thickness 1.0 cm 0.6 - 1.0 / 0.6 - 0.9 cm IVS Systolic Thickness 1.5 cm LVPW Diastolic Thickness 1.8 cm 0.6 - 1.0 / 0.6 - 0.9 cm LVPW Systolic Thickness 2.0 cm LVOT Diameter 2.1 cm LV Ejection Fraction 2D Teich 68.2 % LV Ejection Fraction MOD 4C 72.9 % LV Ejection Fraction MOD 2C 82.1 % LV Ejection Fraction 2C AL 82.7 % LA Diameter 3.3 cm RA Systolic Volume 4C AL 42.3 ml RA Systolic Volume 4C MOD 39.5 ml LA Sys Volume AL 26.5 cm cubed LA Sys Volume Index AL 13.7 cm cubed/m squared Aorta at Sinotubular Diameter 2.1 cm IVC Diameter 1.3 cm M-MODE LA Ao Ratio MM 1.5 AV Cusp Separation MM 1.6 cm DOPPLER AV Peak Velocity 168.7 cm/s LVOT Peak Velocity 141.0 cm/s AV Area Cont Eq vti 3.0 cm squared AV Area Cont Eq pk 2.9 cm squared MV Peak Velocity 95.0 cm/s MV Area PHT 4.5 cm squared Mitral E to A Ratio 1.0 TV Peak Velocity 312.0 cm/s TR Peak Velocity 352.0 cm/s TR Peak Gradient 49.6 mmHg TR Mean Velocity 267.0 cm/s TR Mean Gradient 30.9 mmHg TR Velocity Time Integral 88.2 cm PV Peak Velocity 108.0 cm/s RV Ejection Time 0.3 s FINDINGS Left Ventricle Normal left ventricular size, systolic function and wall thickness, with no regional wall motion abnormalities. Left ventricular ejection fraction is estimated at 60 %. Grade I/IV diastolic dysfunction (abnormal relaxation filling pattern), normal to mildly elevated filling pressures. Right Ventricle The right ventricle is normal in size and function. Right Atrium The right atrium is normal in size. Left Atrium The left atrium is normal in size. Mitral Valve Mitral valve sclerosis. No mitral valve stenosis. Trace mitral valve regurgitation. Aortic Valve Moderate aortic valve calcification. Aortic valve sclerosis. No aortic valve stenosis. Trace aortic valve regurgitation. Tricuspid Valve [id number] tricuspid valve regurgitation. Pulmonic Valve Structurally normal pulmonic valve without significant stenosis. There is no pulmonic regurgitation. Pericardium Normal pericardium without effusion. Aorta Normal ascending aorta dimension. IVC The inferior vena cava appears normal. CONCLUSIONS Normal left ventricular size, systolic function and wall thickness, with no regional wall motion abnormalities. Left ventricular ejection fraction is estimated at 60 %. Grade I/IV diastolic dysfunction (abnormal relaxation filling pattern), normal to mildly elevated filling pressures. There is no pericardial effusion. No significant valve abnormalities. Right atrial pressure is around 5 mm of mercury. Elida Aponte MD (Electronically Signed) Final Date: 17 November 2024 23:27 S
== END 2024-11-17 14:06 | disposition home or self-care (01) ==
LOC: RAD 14:08
PROVIDERS: PCP Nurse Practitioner; Visit Provider Internal Medicine
DX: I07.1 Rheumatic tricuspid insufficiency (principal); R93.1 Abnormal findings on diagnostic imaging of heart and coronary circulation; I05.9 Rheumatic mitral valve disease, unspecified; I35.8 Other nonrheumatic aortic valve disorders
CPT/HCPCS: 93306

== ENCOUNTER → 2024-12-26 12:23 | Outpatient (BNVA) | payer MEDICARE, SELFPAY | PROVIDERS: PCP Nurse Practitioner; Visit Provider Internal Medicine | DX: R07.9 Chest pain, unspecified (principal); I10 Essential (primary) hypertension; E78.5 Hyperlipidemia, unspecified; J45.990 Exercise induced bronchospasm | CPT/HCPCS: 99214 ==